=== PATIENT | female | born 1990 | race Hispanic/Latino ===

== ENCOUNTER 2019-10-04 08:34 | Emergency (ER) | payer OTHER ==
[2019-10-04] MEDS ORDERED: NA CHLORIDE 0.9% 1,000 ML ONE (09:10)
[2019-10-04 09:25] LABS: Absolute Lymphocytes (CBC) 2.2 K/uL (0.7-4.9); Basophils % 0.4 % (0-1.3); Hematocrit 36.6 % (36.0-45.0); Lymphocytes % 19.4 % (15.3-44.8); MPV 7.1 fL (7.6-11.3); RBC Red Blood Cell Count 4.07 M/uL (3.86-4.86)
[2019-10-04 09:55] LABS: BUN Blood Urea Nitrogen 6 mg/dL (7-18); Bicarbonate 21 mmol/L (21-32); Glucose Level 80 mg/dL (74-106); HCG, Quantitative 21348 mIU/mL (1-3); Potassium 3.6 mmol/L (3.5-5.1); Sodium Level 138 mmol/L (136-145)
[2019-10-04] MEDS ORDERED: CEFTRIAXONE/SWI 1gm 1 GM/10 ML SYR ONE (10:16)
--- NOTE | 2019-10-04 10:31 | ER ---
Nurse's Notes [facility] Name: Xiomara Huertas Age: 29 yrs Sex: Female : 1990 Arrival Date: 10/04/2019 Time: 08:36 Bed 14 Private MD: Diagnosis: Threatened -14 weeks, low placenta;Urinary tract infection, site not specified Presentation: 10/03 08:41 Chief complaint: Patient states: 14 weeks and vaginal bleeding began this aa5 morning, pt states "It was pink colored but I could feel it come out this morning". Pt states "I only got a little bit of (abdominal) cramping this morning but not anymore". Denies nausea/vomiting. 08:41 Coronavirus screen: Patient denies a cough. Patient denies shortness of breath or aa5 difficulty breathing. Patient denies measured and/or subjective temperature greater than 100.4F prior to today's visit. Patient denies travel on a cruise ship or to a country the [facility] currently lists as an affected area. Patient denies contact with known and/or suspected case of COVID-19. Proceed with normal triage. Ebola Screen: Patient negative for fever greater than or equal to 101.5 degrees Fahrenheit, and additional compatible Ebola Virus Disease symptoms. Initial Sepsis Screen: Does the patient meet any 2 criteria? No. Patient's initial sepsis screen is negative. Does the patient have a suspected source of infection? No. Patient's initial sepsis screen is negative. Risk Assessment: Do you want to hurt yourself or someone else? Patient reports no desire to harm self or others. Onset of symptoms was October 04, 2019. 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 - Social history:: Smoking status: Patient denies any tobacco usage or history of. - Family history:: not pertinent. Screenin:22 Abuse screen: Denies threats or abuse. Denies injuries from another. Nutritional hb screening: No deficits noted. Tuberculosis screening: No symptoms or risk factors identified. Fall Risk None identified. Assessment: 09:05 General: Appears in no apparent distress. Behavior is calm, cooperative. Pain: Denies hb pain. Neuro: Level of Consciousness is awake, alert, obeys commands, Oriented to person, place, time, situation. Cardiovascular: Capillary refill < 3 seconds Patient's skin is warm and dry. Respiratory: Respiratory effort is even, unlabored, Respiratory pattern is regular, symmetrical. GI: No signs and/or symptoms were reported involving the gastrointestinal system. : Reports pink tinged vaginal discharge upon waking today. EENT: No signs and/or symptoms were reported regarding the EENT system. Derm: Skin is pink, warm \\T\\ dry. Musculoskeletal: No signs and/or symptoms reported regarding the musculoskeletal system. Vital Signs: 08:41 BP 131 / 60; Pulse 83; Resp 16 S; Temp 98.8(O); Pulse Ox 100% on R/A; Weight 81.19 kg aa5 (R); Height 4 ft. 11 in. (149.86 cm) (R); Pain 0/10; 08:41 Body Mass Index 36.15 (81.19 kg, 149.86 cm) aa5 ED Course: 08:36 Patient arrived in ED. as 08:37 Arya Shepard MD is Attending Physician. leona 08:41 Arm band placed on Patient placed in an exam room, on a stretcher. aa5 08:50 Triage completed. aa5 08:58 Vianey Munoz, RN is Primary Nurse. hb 09:05 Patient has correct armband on for positive identification. Placed in gown. Bed in low hb position. Call light in reach. Side rails up X 1. 09:10 Inserted saline lock: 22 gauge in left antecubital area, using aseptic technique. Blood hb collected. 10:03 Urine Culture Sent. ca1 10:30 Scout Nieto MD is Referral Physician. leona 10:42 Ultrasound completed. Patient tolerated well. Notified ED Physician avery. sg3 10:42 US Transvaginal Ob In Process Unspecified. EDMS Administered Medications: 09:10 Drug: NS 0.9% 1000 ml Route: IV; Rate: 1 bolus; Site: left antecubital; hb 10:10 Drug: Rocephin 1 grams Route: IV; Rate: per protocol; Site: left antecubital; ca1 Outcome: 10:30 Discharge ordered by MD. delgadillo 10:49 Patient left the ED. aa5 Signatures: Dispatcher [employer] EDMS Arya Shepard MD MD cha Martinez, Amelia as Calderon, Audri RN RN aa5 Vianey Munoz RN RN Milady Gonzalez 3 Francisca Penn RN RN ca1
--- NOTE | 2019-10-04 10:32 | EDPHYS ---
Physician Documentation [facility] Name: Xiomara Huertas Age: 29 yrs Sex: Female : 1990 Arrival Date: 10/04/2019 Time: 08:36 Bed 14 Private MD: ED Physician Arya Shepard HPI: 10/03 09:25 This 29 yrs old Female presents to ER via Ambulatory with complaints of leona Vaginal Bleeding - 14 wks preg. 09:25 The patient presents with vaginal bleeding that is light. Onset: The symptoms/episode leona began/occurred just prior to arrival, this morning. Modifying factors: The symptoms are alleviated by nothing, the symptoms are aggravated by nothing. Associated signs and symptoms: The patient has no apparent associated signs or symptoms. Severity of symptoms: At their worst the symptoms were mild, in the emergency department the symptoms are unchanged. The patient is sexually active, reportedly has a single partner. The patient has not experienced similar symptoms in the past. 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 - Social history:: Smoking status: Patient denies any tobacco usage or history of. - Family history:: not pertinent. ROS: 09:25 Constitutional: Negative for fever, chills, and weight loss, Eyes: Negative for injury, leona pain, redness, and discharge, ENT: Negative for injury, pain, and discharge, Neck: Negative for injury, pain, and swelling, Cardiovascular: Negative for chest pain, palpitations, and edema, Respiratory: Negative for shortness of breath, cough, wheezing, and pleuritic chest pain, Abdomen/GI: Negative for abdominal pain, nausea, vomiting, diarrhea, and constipation, Back: Negative for injury and pain, MS/Extremity: Negative for injury and deformity, Skin: Negative for injury, rash, and discoloration, Neuro: Negative for headache, weakness, numbness, tingling, and seizure, Psych: Negative for depression, anxiety, suicide ideation, homicidal ideation, and hallucinations, Allergy/Immunology: Negative for hives, rash, and allergies, Endocrine: Negative for neck swelling, polydipsia, polyuria, polyphagia, and marked weight changes, Hematologic/Lymphatic: Negative for swollen nodes, abnormal bleeding, and unusual bruising. 09:25 : Positive for vaginal bleeding. Exam: 09:25 Constitutional: This is a well developed, well nourished patient who is awake, alert, leona and in no acute distress. Head/Face: Normocephalic, atraumatic. Eyes: Pupils equal round and reactive to light, extra-ocular motions intact. Lids and lashes normal. Conjunctiva and sclera are non-icteric and not injected. Cornea within normal limits. Periorbital areas with no swelling, redness, or edema. ENT: Nares patent. No nasal discharge, no septal abnormalities noted. Tympanic membranes are normal and external auditory canals are clear. Oropharynx with no redness, swelling, or masses, exudates, or evidence of obstruction, uvula midline. Mucous membranes moist. Neck: Trachea midline, no thyromegaly or masses palpated, and no cervical lymphadenopathy. Supple, full range of motion without nuchal rigidity, or vertebral point tenderness. No Meningismus. Chest/axilla: Normal chest wall appearance and motion. Nontender with no deformity. No lesions are appreciated. Cardiovascular: Regular rate and rhythm with a normal S1 and S2. No gallops, murmurs, or rubs. Normal PMI, no JVD. No pulse deficits. Abdomen/GI: Soft, non-tender, with normal bowel sounds. No distension or tympany. No guarding or rebound. No evidence of tenderness throughout. Back: No spinal tenderness. No costovertebral tenderness. Full range of motion. Skin: Warm, dry with normal turgor. Normal color with no rashes, no lesions, and no evidence of cellulitis. MS/ Extremity: Pulses equal, no cyanosis. Neurovascular intact. Full, normal range of motion. Neuro: Awake and alert, GCS 15, oriented to person, place, time, and situation. Cranial nerves II-XII grossly intact. Motor strength 5/5 in all extremities. Sensory grossly intact. Cerebellar exam normal. Normal gait. Psych: Awake, alert, with orientation to person, place and time. Behavior, mood, and affect are within normal limits. 09:25 Respiratory: the patient does not display signs of respiratory distress, Respirations: normal, Breath sounds: are clear throughout. Vital Signs: 08: BP 131 / 60; Pulse 83; Resp 16 S; Temp 98.8(O); Pulse Ox 100% on R/A; Weight 81.19 kg aa5 (R); Height 4 ft. 11 in. (149.86 cm) (R); Pain 0/10; 08:41 Body Mass Index 36.15 (81.19 kg, 149.86 cm) aa5 MDM: 08:41 Patient medically screened. leona 09:28 Differential diagnosis: threatened Ab. Data reviewed: vital signs, nurses notes, lab [facility] test result(s), radiologic studies, ultrasound. Data interpreted: pvc monitor: rate is 83 beats/min, rhythm is regular, Pulse oximetry: on room air is 100 %. Test interpretation: by ED physician or midlevel provider:. Counseling: I had a detailed discussion with the patient and/or guardian regarding: the historical points, exam findings, and any diagnostic results supporting the discharge/admit diagnosis, lab results, radiology results, the need for outpatient follow up, for definitive care, an OB/Gyne specialist. 10:29 ED course: pelvic rest, follow up ob, return if worsens. 10/03 08:41 Order name: Quantitative Hcg; Complete Time: 10:25 10/03 08:41 Order name: Abo/rh Typing; Complete Time: 09:55 10/03 08:41 Order name: Basic Metabolic Panel; Complete Time: 10:25 10/03 08:41 Order name: CBC with Diff; Complete Time: 09:55 10/03 09:53 Order name: Urine Dipstick--Ancillary (enter results) eb 10/03 09:53 Order name: Urine --Ancillary (enter results) eb 10/03 08:41 Order name: Urine Test (obtain specimen); Complete Time: 10:03 10/03 08:41 Order name: IV Saline Lock; Complete Time: 09:21 10/03 08:41 Order name: Labs collected and sent; Complete Time: 09:21 10/03 08:41 Order name: NPO; Complete Time: 09:21 10/03 08:41 Order name: US Transvaginal Ob [facility] 10/03 09:56 Order name: Urine Culture [facility] 10/03 08:41 Order name: Urine Dipstick-Ancillary (obtain specimen); Complete Time: 10:03 [facility] Administered Medications: 09:10 Drug: NS 0.9% 1000 ml Route: IV; Rate: 1 bolus; Site: left antecubital; hb 10:10 Drug: Rocephin 1 grams Route: IV; Rate: per protocol; Site: left antecubital; ca1 Disposition: 10/04/19 10:30 Discharged to Home. Impression: Threatened - 14 weeks, low placenta, Urinary tract infection, site not specified. - Condition is Stable. - Discharge Instructions: Threatened Miscarriage, Urinary Tract Infection, Adult, Vaginal Bleeding During , First Trimester, Vaginal Bleeding During , Second Trimester, Urinary Tract Infection, Adult, [id number], Threatened Miscarriage, [id number], Pelvic Rest. - Prescriptions for Vitamin 27- 0.8 mg Oral Tablet - take 1 tablet by ORAL route once daily; 30 tablet. Macrobid 100 mg Oral Capsule - take 1 capsule by ORAL route every 12 hours for 7 days; 14 capsule. - Medication Reconciliation Form, Thank You Letter, Antibiotic Education, Prescription Opioid Use form. - Follow up: Private Physician; When: 2 - 3 days; Reason: Recheck today's complaints, Continuance of care, Re-evaluation by your physician. Follow up: Scout Nieto; When: 2 - 3 days; Reason: Recheck today's complaints, Re-evaluation by your physician. - Problem is new. - Symptoms have improved. Signatures: Dispatcher [employer] EDNE Arya Shepard MD MD cha Calderon, Audri, RN RN aa5 Vianey Munoz RN RN Francisca Penn RN RN ca1 Corrections: (The following items were deleted from the chart) 10:49 10:30 10/04/2019 10:30 Discharged to Home. Impression: Threatened - 14 weeks, aa5 low placenta; Urinary tract infection, site not specified. Condition is Stable. Discharge Instructions: Threatened Miscarriage, Vaginal Bleeding During , First Trimester, Vaginal Bleeding During , Second Trimester, Threatened Miscarriage, [id number], Pelvic Rest, Urinary Tract Infection, Adult, Urinary Tract Infection, Adult, [id number]. Prescriptions for Vitamin 27-0.8 mg Oral Tablet - take 1 tablet by ORAL route once daily; 30 tablet, Macrobid 100 mg Oral Capsule - take 1 capsule by ORAL route every 12 hours for 7 days; 14 capsule. and Forms are Medication Reconciliation Form, Thank You Letter, Antibiotic Education, Prescription Opioid Use. Follow up: Private Physician; When: 2 - 3 days; Reason: Recheck today's complaints, Continuance of care, Re-evaluation by your physician. Follow up: Scout Nieto; When: 2 - 3 days; Reason: Recheck today's complaints, Re-evaluation by your physician. Problem is new. Symptoms have improved. leona
--- NOTE | 2019-10-04 10:53 | RAD REPORT ---
EXAM DESCRIPTION: US - Transvaginal OB - 10/04/2019 10:40 am CLINICAL HISTORY: with pelvic pain and vaginal bleeding. COMPARISON: None. FINDINGS: Single intrauterine in breech presentation. The placenta is anterior. Placental lakes are present. The tip of the placenta lies 1.4 centimeters c ervix Amniotic fluid is normal. Cardiac activity 144 beats per minute Cervix 3.8 centimeters BPD 2.7 centimeters 14 weeks 5 days HC 10 centimeters 14 weeks 4 days HC 8 centimeters 14 weeks 2 days FL 1.4 centimeters 14 weeks 1 day Right and left ovary appear normal. . An adnexal mass is not noted. No significant free fluid is seen. IMPRESSION: Single live intrauterine with an estimated gestational age 14 weeks 2 days ED D 04/01/2020 Low lying placenta Breech presentation If a survey is desired it should be performed in approximately 4 weeks
[2019-10-04 11:03] VITALS: BP 131/60; TEMP 98.8; O2SAT 100
[2019-10-04 11:25] LABS: Urine Blood 1+ (NEG); Urine Glucose NEGATIVE (NEG); Urine Protein NEGATIVE (NEG); Urine Specific Gravity 1.015 (1.005-1.030); Urine pH 6.5 (5.0-7.0)
== END 2019-10-04 10:49 | disposition home or self-care (01) ==
LOC: ER 08:34
DX: O20.0 Threatened abortion (principal); O23.41 Unspecified infection of urinary tract in pregnancy, first trimester; O44.41 Low lying placenta NOS or without hemorrhage, first trimester; Z3A.14 14 weeks gestation of pregnancy
CPT/HCPCS: 87088; 85025; 87086; 80048; 36415; 86900; 81025; 86901; 84702; 81003; 76817; J0696; J7030; 96374; 99284

== ENCOUNTER 2020-10-27 01:20 | Emergency (ER) | payer OTHER ==
--- OUTSIDE RECORDS SUMMARY | 2020-10-27 01:32 | XMS REPORT | Continuity of Care Document ---
:1990 Author Organization [facility] t Address [address] [place] [address] Care Team Providers Name Role Phone Unavailable Unavailable Unavailable Payers Payer Name Policy Type Policy Number Effective Date Expiration Date S ource Problems This patient has no known problems. Allergies, Adverse Reactions, Alerts Allergy Allergy Status Severity Reaction(s) Onset Inactive Treating Comm ents Source Name Type Date Date Clinician No Known DA Active U [facility] All[facility]ie 04-09 [facility] 00:[facility] e [facility] Medications This patient has no known medications. Procedures This patient has no known procedures. Results Test Description Test Time Test Comments Results Result Comments Source COMPREHENSIVE METABOLIC PANEL 2020-04-11 10:20:00 Test Item Value Reference Range Interpretation Comme nts SODIUM (test code = NA) 140 mmol/L 136-145 N POTASSIUM (test code = K) 3.9 mmol/L 3.5-5.1 N CHLORIDE (test code = CL) 109.0 mmol/L 98-107 H CARBON DIOXIDE (test code = 25.0 mmol/L 21-32 N CO2) ANION GAP (test code = GAP) 9.9 10-20 L GLUCOSE (test code = GLU) 55 mg/dL 74-106 L BLOOD UREA NITROGEN (test code 8 mg/dL 7-18 N = BUN) GLOMERULAR FILTRATION RATE > 60 mL/min >=60 E stimated GFR by using (test code = GFR) Modified M DRD formula.Chronic kidney disease is defined as either kidney d amageor GFR <60 mL/min/1.73 m2 for >3 months. CREATININE (test code = CREAT) 0.50 mg/dL 0.55-1.02 L Note change in reference range due to ch ivan in reagent. BUN/CREATININE RATIO (test code 16.2 10-20 N = BUN/CREA) TOTAL PROTEIN (test code = 5.0 gram/dL 6.4-8.2 L PROT) ALBUMIN (test code = ALB) 1.7 g/dL 3.4-5.0 L GLOBULIN (test code = GLOB) 3.3 gram/dL 2.7-4.2 N ALBUMIN/GLOBULIN RATIO (test 0.5 0.75-1.50 L code = A/G) CALCIUM (test code = CA) 7.8 mg/dL 8.5-10.1 L BILIRUBIN TOTAL (test code = 0.40 mg/dL 0.0-1.0 N BILT) SGOT/AST (test code = AST) 18 IUnit/L 15-37 N SGPT/ALT (test code = ALT) 18 IUnit/L 12-78 N ALKALINE PHOSPHATASE TOTAL 162 IUnit/L 45-117 H * *Note change in reference (test code = ALKP) range due to change in reagent. OLU THOMAS INSTED OF [email or web address] 04/11/20 [id number] METABOLIC [id number] 10:11:00 Test Item Value Reference Range Interpretation Comments SODIUM (test code = NA) 140 mmol/L 136-145 N POTASSIUM (test code = K) 3.9 mmol/L 3.5-5.1 N CHLORIDE (test code = CL) 109.0 mmol/L 98-107 H CARBON DIOXIDE (test code = CO2) mmol/L 21-32 ANION GAP (test code = GAP) 10-20 GLUCOSE (test code = GLU) mg/dL 74-106 BLOOD UREA NITROGEN (test code = mg/dL 7-18 BUN) GLOMERULAR FILTRATION RATE (test mL/min >=60 code = GFR) CREATININE (test code = CREAT) mg/dL 0.55-1.02 BUN/CREATININE RATIO (test code 10-20 = BUN/CREA) TOTAL PROTEIN (test code = PROT) gram/dL 6.4-8.2 ALBUMIN (test code = ALB) g/dL 3.4-5.0 GLOBULIN (test code = GLOB) gram/dL 2.7-4.2 ALBUMIN/GLOBULIN RATIO (test 0.75-1.50 code = A/G) CALCIUM (test code = CA) mg/dL 8.5-10.1 BILIRUBIN TOTAL (test code = mg/dL 0.0-1.0 BILT) SGOT/AST (test code = AST) IUnit/L 15-37 SGPT/ALT (test code = ALT) IUnit/L 12-78 ALKALINE PHOSPHATASE TOTAL (test IUnit/L 45-117 code = ALKP) OLU LAV TOP INSTED OF [email or web address] 04/11/20 [id number] W/AUTO DIFF 2020-04-11 06:46:00 Test Item Value Reference Range Interpretation Comments WHITE BLOOD CELL (test 12.1 K/mm3 4.5-12.5 N code = WBC) RED BLOOD CELL (test 3.09 mill/mm3 3.7-5.2 L code = RBC) HEMOGLOBIN (test code 9.4 gram/dL 11.5-15.5 L RESULT VERIFIED BY = HGB) REPEAT ANALYSIS HEMATOCRIT (test code 28.5 % 36.0-46.0 L = HCT) MEAN CELL VOLUME (test 92.2 fL 80-98 N code = MCV) MEAN CELL HGB (test 30.4 picogram 27.0-33.0 N code = MCH) MEAN CELL HGB 33.0 gram/dL 33.0-36.0 N CONCETRATION (test code = MCHC) RED CELL DISTRIBUTION 14.8 % 11.6-16.2 N WIDTH (test code = RDW) RED CELL DISTRIBUTION 49.5 fL 37.0-51.0 N WIDTH SD (test code = RDW-SD) PLATELET COUNT (test 300 K/mm3 150-450 code = PLT) MEAN PLATELET VOLUME 9.6 fL 6.7-11.0 N (test code = MPV) NEUTROPHIL % (test 78.2 % 39.0-69.0 H code = NT%) IMMATURE GRANULOCYTE % 0.7 % 0.0-5.0 N (test code = IG%) LYMPHOCYTE % (test 14.4 % 25.0-55.0 L code = LY%) MONOCYTE % (test code 6.0 % 0.0-10.0 N = MO%) EOSINOPHIL % (test 0.4 % 0.0-5.0 N code = EO%) BASOPHIL % (test code 0.3 % 0.0-1.0 N = BA%) NUCLEATED RBC % (test 0.0 % 0-0 N code = NRBC%) NEUTROPHIL # (test 9.42 K/mm3 1.8-7.7 H code = NT#) IMMATURE GRANULOCYTE # 0.08 x10 3/uL 0-0.03 H (test code = IG#) LYMPHOCYTE # (test 1.74 K/mm3 1.0-5.0 N code = LY#) MONOCYTE # (test code 0.72 K/mm3 0-0.8 N = MO#) EOSINOPHIL # (test 0.05 K/mm3 0.0-0.5 N code = EO#) BASOPHIL # (test code 0.04 K/mm3 0.0-0.2 N = BA#) NUCLEATED RBC # (test 0.00 K/mm3 0.0-0.1 N code = NRBC#) COMMENTS TO ROOM MANAGER: 1ST [id number] 05:33:00 Test Item Value Reference Range Interpretation Comments GLUBED (test code = 88 mg/dL 74-106 N Performe d by certified GLUBED) 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 at [facility] [id number] 04:17:00 Test Item Value Reference Range Interpretation Comments GLUBED (test code = 74 mg/dL 74-106 N Performe d by certified GLUBED) 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 at [facility] [id number] 00:29:00 Test Item Value Reference Range Interpretation Comments GLUBED (test code = 116 mg/dL 74-106 H Performe d by certified GLUBED) 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 at [facility] AG HEPAT B [id number] 21:34:00 Test Item Value Reference Range Interpretation Comments AG HEPAT B SURF (test code Nonreactive Index Nonreactive = HBSAG) AB [id number] 21:34:00 Test Item Value Reference Range Interpretation Comments AB TREPONEMA (test code = Nonreactive Index NonReactive TREPAB) HIV 1 2 COMBO AG/AB [id number] 21:25:00 Test Item Value Reference Range Interpretation Comments HIV 1 2 COMBO AB/AG NON NONREACTIVE NONREACTIV E HIV AG/AB SCREEN REACTIVE P24 ANTIGEN (test code = NONREACTIVE [id number]) NONREACTIVE HIV 1&2 ANTIBODY NONREACTIVE THE HIV-1 P24 TEST HELPS DISTINGUISH ACU TE HIV-1INFECTIONF ROM ESTABLISHED HIV -1 INFECTION WHEN THE SPECIMEN ISPOSI TIVE FOR HIV-1 P24 A NTIGEN. HIV-1 P24 ANTIG EN IS HIGHEST IN THE FIRST FEW WEEKS AFTERINFECTION COMPREHENSIVE METABOLIC [id number] 21:16:00 Test Item Value Reference Range Interpretation Comments SODIUM (test code = 138 mmol/L 136-145 N NA) POTASSIUM (test code = 3.8 mmol/L 3.5-5.1 N K) CHLORIDE (test code = 106.0 mmol/L 98-107 N CL) CARBON DIOXIDE (test 23.0 mmol/L 21-32 N code = CO2) ANION GAP (test code = 12.8 10-20 N GAP) GLUCOSE (test code = 86 mg/dL 74-106 N GLU) BLOOD UREA NITROGEN 10 mg/dL 7-18 N (test code = BUN) GLOMERULAR FILTRATION > 60 mL/min >=60 Estima shane GFR by RATE (test code = GFR) using Modified MDRD formula.Chronic kidney disease is defined as eith er kidney damageor GFR <60 mL/min/1.73 m2 for >3 months. CREATININE (test code 0.60 mg/dL 0.55-1.02 N Note change in = CREAT) reference range due to change in reagent. BUN/CREATININE RATIO 16.7 10-20 N (test code = BUN/CREA) TOTAL PROTEIN (test 7.5 gram/dL 6.4-8.2 N code = PROT) ALBUMIN (test code = 2.8 g/dL 3.4-5.0 L ALB) GLOBULIN (test code = 4.7 gram/dL 2.7-4.2 H GLOB) ALBUMIN/GLOBULIN RATIO 0.6 0.75-1.50 L (test code = A/G) CALCIUM (test code = 8.8 mg/dL 8.5-10.1 N CA) BILIRUBIN TOTAL (test 0.50 mg/dL 0.0-1.0 N code = BILT) SGOT/AST (test code = 19 IUnit/L 15-37 N AST) SGPT/ALT (test code = 28 IUnit/L 12-78 N ALT) ALKALINE PHOSPHATASE 273 IUnit/L 45-117 H Note change in TOTAL (test code = reference range due ALKP) to change in reagent. [id number] 21:15:00 Test Item Value Reference Range Interpretation Comments GLYCOSYLATED HEMOGLOBIN 5.5 % HbA1 [place] [facility] DIAGNOSIS: (HA1C) (test code = HbA1C GLYHGB) (%) ----- ----- Diab etic >6.4Prediabetes 5.7 - 6.4Normal <5.7 ESTIMATED AVERAGE 111 MG/DL GLUCOSE (test code = EAG) URINALYSIS [id number] 21:14:00 Test Item Value Reference Range Interpretation Comments UA COLOR (test code = YELLOW YELLOW COLU) UA APPEARANCE (test code CLEAR CLEAR = APPU) UA GLUCOSE DIPSTICK (test NEGATIVE mg/dL NEGATIVE code = DGLUU) UA BILIRUBIN DIPSTICK NEGATIVE mg/dL NEGATIVE (test code = BILU) UA KETONE DIPSTICK (test 80 (3+) mg/dL NEGATIVE A code = KETU) UA SPECIFIC GRAVITY (test 1.017 1.001-1.035 code = SGU) UA BLOOD DIPSTICK (test 1.0 mg/dL (3+) mg/dL NEGATIVE A code = YOLANDA) UA PH DIPSTICK (test code 6.0 5.0-8.0 = SONI) UA PROTEIN DIPSTICK (test 20 (Trace) mg/dL NEGATIVE A code = PROU) UA UROBILINIOGEN DIPSTICK Normal mg/dL NEGATIVE (test code = URO) UA NITRITE DIPSTICK (test NEGATIVE NEGATIVE code = DAVID) UA LEUKOCYTE ESTERASE W 75 Orin/uL (1+) NEGATIVE A REFLEX (test code = Orin/uL LEUUR) UA WBC (test code = WBCU) 0-5 per HPF 0-5 UA RBC (test code = RBCU) 0-2 #/HPF 0-5 UA EPITHELIAL CELLS (test FEW per HPF FEW code = EPIU) UA BACTERIA (test code = TRACE #/HPF NONE BACU) UA MUCUS (test code = FEW #/LPF FEW MUCU) URINALYSIS [id number] 21:12:00 Test Item Value Reference Range Interpretation Comments UA COLOR (test code = YELLOW YELLOW COLU) UA APPEARANCE (test code CLEAR CLEAR = APPU) UA GLUCOSE DIPSTICK (test NEGATIVE mg/dL NEGATIVE code = DGLUU) UA BILIRUBIN DIPSTICK NEGATIVE mg/dL NEGATIVE (test code = BILU) UA KETONE DIPSTICK (test 80 (3+) mg/dL NEGATIVE A code = KETU) UA SPECIFIC GRAVITY (test 1.017 1.001-1.035 code = SGU) UA BLOOD DIPSTICK (test 1.0 mg/dL (3+) mg/dL NEGATIVE A code = YOLANDA) UA PH DIPSTICK (test code 6.0 5.0-8.0 = SONI) UA PROTEIN DIPSTICK (test 20 (Trace) mg/dL NEGATIVE A code = PROU) UA UROBILINIOGEN DIPSTICK Normal mg/dL NEGATIVE (test code = URO) UA NITRITE DIPSTICK (test NEGATIVE NEGATIVE code = DAVID) UA LEUKOCYTE ESTERASE W 75 Orin/uL (1+) NEGATIVE A REFLEX (test code = Orin/uL LEUUR) UA WBC (test code = WBCU) per HPF 0-5 UA RBC (test code = RBCU) per HPF 0-5 UA EPITHELIAL CELLS (test per HPF Few code = EPIU) UA BACTERIA (test code = per HPF NONE BACU) URINALYSIS [id number] 21:12:00 Test Item Value Reference Range Interpretation Comments UA COLOR (test code = YELLOW YELLOW COLU) UA APPEARANCE (test code CLEAR CLEAR = APPU) UA GLUCOSE DIPSTICK (test NEGATIVE mg/dL NEGATIVE code = DGLUU) UA BILIRUBIN DIPSTICK NEGATIVE mg/dL NEGATIVE (test code = BILU) UA KETONE DIPSTICK (test 80 (3+) mg/dL NEGATIVE A code = KETU) UA SPECIFIC GRAVITY (test 1.017 1.001-1.035 code = SGU) UA BLOOD DIPSTICK (test 1.0 mg/dL (3+) mg/dL NEGATIVE A code = YOLANDA) UA PH DIPSTICK (test code 6.0 5.0-8.0 = SONI) UA PROTEIN DIPSTICK (test 20 (Trace) mg/dL NEGATIVE A code = PROU) UA UROBILINIOGEN DIPSTICK Normal mg/dL NEGATIVE (test code = URO) UA NITRITE DIPSTICK (test NEGATIVE NEGATIVE code = DAVID) UA LEUKOCYTE ESTERASE W 75 Orin/uL (1+) NEGATIVE A REFLEX (test code = Orin/uL LEUUR) UA WBC (test code = WBCU) per HPF 0-5 UA RBC (test code = RBCU) per HPF 0-5 UA EPITHELIAL CELLS (test per HPF Few code = EPIU) UA BACTERIA (test code = per HPF NONE BACU) COMPREHENSIVE METABOLIC [id number] 21:01:00 Test Item Value Reference Range Interpretation Comments SODIUM (test code = NA) 138 mmol/L 136-145 N POTASSIUM (test code = K) 3.8 mmol/L 3.5-5.1 N CHLORIDE (test code = CL) 106.0 mmol/L 98-107 N CARBON DIOXIDE (test code = CO2) mmol/L 21-32 ANION GAP (test code = GAP) 10-20 GLUCOSE (test code = GLU) mg/dL 74-106 BLOOD UREA NITROGEN (test code = mg/dL 7-18 BUN) GLOMERULAR FILTRATION RATE (test mL/min >=60 code = GFR) CREATININE (test code = CREAT) mg/dL 0.55-1.02 BUN/CREATININE RATIO (test code 10-20 = BUN/CREA) TOTAL PROTEIN (test code = PROT) gram/dL 6.4-8.2 ALBUMIN (test code = ALB) g/dL 3.4-5.0 GLOBULIN (test code = GLOB) gram/dL 2.7-4.2 ALBUMIN/GLOBULIN RATIO (test 0.75-1.50 code = A/G) CALCIUM (test code = CA) mg/dL 8.5-10.1 BILIRUBIN TOTAL (test code = mg/dL 0.0-1.0 BILT) SGOT/AST (test code = AST) IUnit/L 15-37 SGPT/ALT (test code = ALT) IUnit/L 12-78 ALKALINE PHOSPHATASE TOTAL (test IUnit/L 45-117 code = ALKP) COVID 19 Asymptomatic IH [id number] 20:55:00 Test Item Value Reference Range Interpretation Comments COVID 19 Asymptomatic IH AG (test NEGATIVE code = COVNONPUIAG) CBC W/AUTO [id number] 20:48:00 Test Item Value Reference Range Interpretation Comments WHITE BLOOD CELL (test code = 15.9 K/mm3 4.5-12.5 H WBC) RED BLOOD CELL (test code = 4.25 mill/mm3 3.7-5.2 N RBC) HEMOGLOBIN (test code = HGB) 12.5 gram/dL 11.5-15.5 N HEMATOCRIT (test code = HCT) 38.7 % 36.0-46.0 N MEAN CELL VOLUME (test code = 91.1 fL 80-98 N MCV) MEAN CELL HGB (test code = MCH) 29.4 picogram 27.0-33.0 N MEAN CELL HGB CONCETRATION 32.3 gram/dL 33.0-36.0 L (test code = MCHC) RED CELL DISTRIBUTION WIDTH 14.4 % 11.6-16.2 N (test code = RDW) RED CELL DISTRIBUTION WIDTH SD 47.8 fL 37.0-51.0 N (test code = RDW-SD) PLATELET COUNT (test code = 442 K/mm3 150-450 N PLT) MEAN PLATELET VOLUME (test code 9.4 fL 6.7-11.0 N = MPV) NEUTROPHIL % (test code = NT%) 79.0 % 39.0-69.0 H IMMATURE GRANULOCYTE % (test 0.6 % 0.0-5.0 N code = IG%) LYMPHOCYTE % (test code = LY%) 12.4 % 25.0-55.0 L MONOCYTE % (test code = MO%) 7.6 % 0.0-10.0 N EOSINOPHIL % (test code = EO%) 0.1 % 0.0-5.0 N BASOPHIL % (test code = BA%) 0.3 % 0.0-1.0 N NUCLEATED RBC % (test code = 0.0 % 0-0 N NRBC%) NEUTROPHIL # (test code = NT#) 12.51 K/mm3 1.8-7.7 H IMMATURE GRANULOCYTE # (test 0.10 x10 3/uL 0-0.03 H code = IG#) LYMPHOCYTE # (test code = LY#) 1.96 K/mm3 1.0-5.0 N MONOCYTE # (test code = MO#) 1.21 K/mm3 0-0.8 H EOSINOPHIL # (test code = EO#) 0.02 K/mm3 0.0-0.5 N BASOPHIL # (test code = BA#) 0.05 K/mm3 0.0-0.2 N NUCLEATED RBC # (test code = 0.00 K/mm3 0.0-0.1 N NRBC#)
--- NOTE | 2020-10-27 02:52 | EDPHYS ---
Physician Documentation [facility] Name: Xiomara Huertas Age: 30 yrs Sex: Female : 1990 Arrival Date: 10/27/2020 Time: 01:24 Bed Waiting Private MD: ED Physician Steve Dumont HPI: 10/27 02:47 This 30 yrs old Female presents to ER via Unassigned with complaints of sp3 Gallbladder Pain. 02:47 30-year-old female history of and appendectomy presents with 24 hours of sp3 right upper quadrant pain without emesis, diarrhea, left-sided pain, chest pain, fever or any other symptoms. On ROS, patient denies headache, neck pain, chest pain back pain, syncope, neuro symptoms, any other ROS at this time. Patient was concern for gallstones and came in for ultrasound. Patient has no other symptoms.. 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 - Social history:: Smoking status: Patient denies any tobacco usage or history of. ROS: 02:48 Constitutional: Negative for fever, chills, and weight loss, Eyes: Negative for injury, sp3 pain, redness, and discharge, ENT: Negative for injury, pain, and discharge, Neck: Negative for injury, pain, and swelling, Cardiovascular: Negative for chest pain, palpitations, and edema, Respiratory: Negative for shortness of breath, cough, wheezing, and pleuritic chest pain, Back: Negative for injury and pain, : Negative for injury, bleeding, discharge, and swelling, MS/Extremity: Negative for injury and deformity, Skin: Negative for injury, rash, and discoloration, Neuro: Negative for headache, weakness, numbness, tingling, and seizure, Psych: Negative for depression, anxiety, suicide ideation, homicidal ideation, and hallucinations, Allergy/Immunology: Negative for hives, rash, and allergies, Endocrine: Negative for neck swelling, polydipsia, polyuria, polyphagia, and marked weight changes. 02:48 Abdomen/GI: Positive for abdominal pain, Negative for nausea and vomiting, diarrhea, rectal pain, rectal bleeding. Exam: 02:49 Constitutional: This is a well developed, well nourished patient who is awake, alert, sp3 and in no acute distress. Head/Face: Normocephalic, atraumatic. Eyes: Pupils equal round and reactive to light, extra-ocular motions intact. Lids and lashes normal. Conjunctiva and sclera are non-icteric and not injected. Cornea within normal limits. Periorbital areas with no swelling, redness, or edema. ENT: Nares patent. No nasal discharge, no septal abnormalities noted. External auditory canals are clear. Oropharynx with no redness, swelling, or masses, exudates, or evidence of obstruction, uvula midline. Mucous membranes moist. Neck: Trachea midline, no thyromegaly or masses palpated, and no cervical lymphadenopathy. Supple, full range of motion without nuchal rigidity, or vertebral point tenderness. No Meningismus. Chest/axilla: Normal chest wall appearance and motion. Nontender with no deformity. No lesions are appreciated. Cardiovascular: Regular rate and rhythm with a normal S1 and S2. No gallops, murmurs, or rubs. Normal PMI, no JVD. No pulse deficits. Respiratory: Lungs have equal breath sounds bilaterally, clear to auscultation and percussion. No rales, rhonchi or wheezes noted. No increased work of breathing, no retractions or nasal flaring. Abdomen/GI: Soft, non-tender, with normal bowel sounds. No distension or tympany. No guarding or rebound. No evidence of tenderness throughout. Back: No spinal tenderness. No costovertebral tenderness. Full range of motion. Skin: Warm, dry with normal turgor. Normal color with no rashes, no lesions, and no evidence of cellulitis. Neuro: Awake and alert, GCS 15, oriented to person, place, time, and situation. Cranial nerves II-XII grossly intact. Motor strength 5/5 in all extremities. Sensory grossly intact. Cerebellar exam normal. Normal gait. Psych: Awake, alert, with orientation to person, place and time. Behavior, mood, and affect are within normal limits. Vital Signs: 02:54 BP 121 / 73; Pulse 65; Resp 16; Temp 97.2; Pulse Ox 100% on R/A; Weight 78.02 kg; em Height 4 ft. 11 in. (149.86 cm); 02:54 Body Mass Index 34.74 (78.02 kg, 149.86 cm) em MDM: 02:49 Data reviewed: vital signs, nurses notes, radiologic studies. ED course: 22-year-old sp3 female with abdominal pain right upper quadrant that is now resolved. Ultrasound demonstrates positive gallstones without pericholecystic fluid or thickened gallbladder wall. Patient is no acute distress and is able to speak without any pain. Labs were initially ordered due to chief complaint but were canceled due to patient not needing further work-up. Patient has been stretching now and is not . Patient will follow up with general surgeon for outpatient cholecystectomy and she is aware of signs symptoms to return here in the emergency department for further complications or symptoms. Labs were still offered to patient for further work-up here but she declined.. 02:52 Patient medically screened. sp3 10/27 02:11 Order name: US Abdomen Limited sp3 Administered Medications: No medications were administered Disposition Summary: 10/27/20 02:52 Discharge Ordered Location: Home sp3 Condition: Stable sp3 Diagnosis - Other cholelithiasis without obstruction sp3 Followup: sp3 - With: Ruel Serrato MD - When: As needed - Reason: Continuance of care Discharge Instructions: - Discharge Summary Sheet sp3 - Cholelithiasis sp3 Forms: - Medication Reconciliation Form sp3 - Thank You Letter sp3 - Antibiotic Education sp3 - Prescription Opioid Use sp3 Signatures: Dispatcher [employer] Randall Watkins RN RN em Steve Dumont sp3 Corrections: (The following items were deleted from the chart) 03:02 02:10 IV Saline Lock ordered. sp3 em 03:02 02:10 Labs collected and sent ordered. sp3 em
--- NOTE | 2020-10-27 03:03 | ER ---
Nurse's Notes [facility] Name: Xiomara Huertas Age: 30 yrs Sex: Female : 1990 Arrival Date: 10/27/2020 Time: 01:24 Bed Waiting Private MD: Diagnosis: Other cholelithiasis without obstruction Presentation: 10/27 02:54 Chief complaint: Patient states: gallbladder pain att day worse at 2330, reports em nausea, denies fever. Coronavirus screen: Client denies travel out of the [place] in the last 14 days. Ebola Screen: Patient negative for fever greater than or equal to 101.5 degrees Fahrenheit, and additional compatible Ebola Virus Disease symptoms Patient denies exposure to infectious person. Patient denies travel to an Ebola-affected area in the 21 days before illness onset. No symptoms or risks identified at this time. Initial Sepsis Screen: Does the patient meet any 2 criteria? No. Patient's initial sepsis screen is negative. Does the patient have a suspected source of infection? No. Patient's initial sepsis screen is negative. Risk Assessment: Do you want to hurt yourself or someone else? Patient reports no desire to harm self or others. Onset of symptoms was October 27, 2020. 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 - Social history:: Smoking status: Patient denies any tobacco usage or history of. Screenin:58 Abuse screen: Denies threats or abuse. Nutritional screening: No deficits noted. em Tuberculosis screening: No symptoms or risk factors identified. Fall Risk None identified. Assessment: 02:57 General: Appears in no apparent distress. comfortable, Behavior is calm, cooperative, em appropriate for age, Denies fever. Pain: Complains of pain in abdomen. Neuro: Level of Consciousness is awake, alert, obeys commands, Oriented to person, place, time, situation. Cardiovascular: Capillary refill < 3 seconds Patient's skin is warm and dry. Respiratory: Airway is patent Respiratory effort is even, unlabored, Respiratory pattern is regular, symmetrical. GI: Abdomen is round non-distended, Reports nausea, Patient currently denies vomiting. Derm: Skin is intact, is healthy with good turgor, Skin is pink, warm \T\ dry. Vital Signs: 02:54 BP 121 / 73; Pulse 65; Resp 16; Temp 97.2; Pulse Ox 100% on R/A; Weight 78.02 kg; em Height 4 ft. 11 in. (149.86 cm); 02:54 Body Mass Index 34.74 (78.02 kg, 149.86 cm) em ED Course: 01:24 Patient arrived in ED. 02:31 US Abdomen Limited In Process Unspecified. EDMS 02:36 Steve Dumont is Attending Physician. sp3 02:52 Ruel Serrato MD is Referral Physician. sp3 02:52 Randall Orantes, RN is Primary Nurse. em 02:56 Triage completed. em 02:56 Arm band placed on. em 02:58 Patient has correct armband on for positive identification. em 03:02 No provider procedures requiring assistance completed. Patient did not have IV access em during this emergency room visit. Administered Medications: No medications were administered Outcome: 02:52 Discharge ordered by . sp3 03:02 Discharged to home ambulatory. em 03:02 Condition: stable 03:02 Discharge instructions given to patient, Instructed on discharge instructions, follow up and referral plans. Demonstrated understanding of instructions, follow-up care. 03:02 Patient left the ED. em Signatures: Dispatcher [employer] ED[facility] Randall Orantes, RN RN Lauryn Manriquez Steve Dumont sp3
[2020-10-27 03:09] VITALS: BP 121/73; TEMP 97.2; O2SAT 100
--- NOTE | 2020-10-27 07:52 | RAD REPORT ---
EXAM DESCRIPTION: US - Abdomen Exam Limited - 10/27/2020 2:31 am CLINICAL HISTORY: Abdominal pain. COMPARISON: None. FINDINGS: Multiple gallstones. Gallbladder wall is not thickened. The biliary tree is normal caliber. IMPRESSION: Cholelithiasis
== END 2020-10-27 03:02 | disposition home or self-care (01) ==
LOC: ER 01:20
DX: K80.80 Other cholelithiasis without obstruction (principal); E03.9 Hypothyroidism, unspecified
CPT/HCPCS: 76705; 99283

== ENCOUNTER 2021-01-26 17:59 | Emergency (ER) | payer OTHER ==
--- OUTSIDE RECORDS SUMMARY | 2021-01-26 18:02 | XMS REPORT | Continuity of Care Document ---
:1990 Author Organization [facility] t Address [address] [place] [address] Care Team Providers Name Role Phone Rosaline Ni Primary Care Physician Ginette Murguia CNM Attending Clinician Unavailable Person MD Attending Clinician PERSON Attending Clinician Unavailable [facility] Attending Clinician Unavailable Service/Gensurserge C Attending Clinician Unavailable Doctor Unassigned, Name Attending Clinician Unavailable Ced, S Admitting Clinician Unavailable Ginette Murguia CNM Admitting Clinician Unavailable Payers Payer Name Policy Type Policy Number Effective Date Expiration Date S ource Problems Condition Condition Condition Status Onset Resolution Last Treating Co mments Source Name Details Category Date Date Treatment Clinician Date Acquired Acquired Disease Active Unive rs hypothyroi hypothyroi 06-14 it y of dism dism 00:00: [address] Thyroid Thyroid Disease Active Univers nodule nodule 06-14 ity of 00:00: [address] Surveillan Surveillan Disease Active Overview : Univers ce of ce of [address] ity of previously previously 00:00: g of this [place] prescribed prescribed 00 note Me dical contracept contracept might be Branch maximilian method maximilian method different from the original. 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 ICD10 Diagnosis Term [address] [employer] [address] Instructor Utility Overweight Overweight Disease Active Overview : Univers 05-16 [place]att[place] ity of 00:00: g of this note Medical might be Branch different from the original. ICD10 Diagnosis Term [address] [employer] [address] Instructor Utility ASCUS on ASCUS on Disease Active Overview: Un artemio Pap smear Pap smear 05-11 Formatt[place] i ty of 00:00: g of this note Medical might be Branch different from the original. Negative HPV. Repeat in 3 years Allergies, Adverse Reactions, Alerts Allergy Allergy Status Severity Reaction(s) Onset Inactive Treating Comm ents Source Name Type Date Date Clinician No Known DA Active U [facility] 04[facility]09 [facility] e [facility] NO KNOWN Drug Active Univers ALLERGIE Class ity of S [facility] Social History Social Habit Start Date Stop Date Quantity Comments Source Exposure to Not sure [facility] SARS-CoV-2 [facility] (event) Branch Tobacco use and 2020-11-08 2020-11-08 Never used Universit y of exposure 00:00:00 00:00:00 [facility] Alcohol intake 2020-11-08 2020-11-08 Current University of 00:00:00 00:00:00 non-drinker of [facility] alcohol Branch (finding) Sex Ass[birth year] At [birth year] Universit y of 00:00:00 00:00:00 [facility] Smoking Status Start Date Stop Date Source Never smoker [facility] Branch Medications Ordered Filled Start Stop Current Ordering Indication Dosage Frequency Signature Comments Components Source Medication Medication Date Date Medication? Clinician (SIG) Name Name levothyroxi Yes [id number] 75ug Take 1 Univers ne 8-30 tablet by ity of (SYNTHROID) 00:00: mouth [place] 75 mcg 00 every Medical tablet morning. Branch Brand necessary levothyroxi 2018-0 Yes [id number] 75ug Take 1 Univers ne 8-30 tablet by ity of (SYNTHROID) 00:00: mouth [place] 75 mcg 00 every Medical tablet morning. Branch Brand necessary levothyroxi Yes [id number] 75ug Take 1 Univers ne 8-30 tablet by ity of (SYNTHROID) 00:00: mouth [place] 75 mcg 00 every Medical tablet morning. Branch Brand necessary levothyroxi Yes [id number] 75ug Take 1 Univers ne 8-30 tablet by ity of (SYNTHROID) 00:00: mouth [place] 75 mcg 00 every Medical tablet morning. Branch Brand necessary levothyroxi Yes [id number] 75ug Take 1 Univers ne 8-30 tablet by ity of (SYNTHROID) 00:00: mouth [place] 75 mcg 00 every Medical tablet morning. Branch Brand necessary levothyroxi Yes [id number] 75ug Take 1 Univers ne 8-30 tablet by ity of (SYNTHROID) 00:00: mouth [place] 75 mcg 00 every Medical tablet morning. Branch Brand necessary liothyronin Yes [id number] 5ug Take 1 Univers e (CYTOMEL) 8-29 tablet by ity of 5 mcg 00:00: mouth [place] tablet 00 daily. [facility] Branch liothyronin Yes [id number] 5ug Take 1 Univers e (CYTOMEL) 8-29 tablet by ity of 5 mcg 00:00: mouth [place] tablet 00 daily. [facility] Branch liothyronin Yes [id number] 5ug Take 1 Univers e (CYTOMEL) 8-29 tablet by ity of 5 mcg 00:00: mouth [place] tablet 00 daily. [facility] Branch liothyronin Yes [id number] 5ug Take 1 Univers e (CYTOMEL) 8-29 tablet by ity of 5 mcg 00:00: mouth [place] tablet 00 daily. [facility] Branch liothyronin Yes [id number] 5ug Take 1 Univers e (CYTOMEL) 8-29 tablet by ity of 5 mcg 00:00: mouth [place] tablet 00 daily. [facility] Branch liothyronin Yes [id number] 5ug Take 1 Univers e (CYTOMEL) 8-29 tablet by ity of 5 mcg 00:00: mouth [place] tablet 00 daily. [facility] Immunizations Ordered Filled Immunization Date Status Comments [facility] e Immunization Name Name HPV 2013-11-02 Completed University of 00:00:00 [place] [facility] HPV 2013-11-02 Completed University of 00:00:00 [place] [facility] HPV 2013-11-02 Completed University of 00:00:00 [place] [facility] HPV 2013-11-02 Completed University of 00:00:00 [place] [facility] HPV 2013-11-02 Completed University of 00:00:00 [place] [facility] HPV 2013-11-02 Completed University of 00:00:00 [place] [facility] HPV 2013-06-04 Completed University of 00:00:00 [place] [facility] HPV 2013-06-04 Completed University of 00:00:00 [place] [facility] HPV 2013-06-04 Completed University of 00:00:00 [place] [facility] HPV 2013-06-04 Completed University of 00:00:00 [place] [facility] HPV 2013-06-04 Completed University of 00:00:00 [place] [facility] HPV 2013-06-04 Completed University of 00:00:00 [place] [facility] HPV 2013-04-21 Completed University of 00:00:00 [place] [facility] HPV 2013-04-21 Completed University of 00:00:00 [place] [facility] HPV 2013-04-21 Completed University of 00:00:00 [place] [facility] HPV 2013-04-21 Completed University of 00:00:00 [place] [facility] HPV 2013-04-21 Completed University of 00:00:00 [place] [facility] HPV 2013-04-21 Completed University of 00:00:00 [place] [facility] Td 2006-03-11 Completed University of 00:00:00 [place] [facility] Td 2006-03-11 Completed University of 00:00:00 [place] [facility] Td 2006-03-11 Completed University of 00:00:00 [place] [facility] Td 2006-03-11 Completed University of 00:00:00 [place] [facility] Td 2006-03-11 Completed University of 00:00:00 [place] [facility] Td 2006-03-11 Completed University of 00:00:00 [facility] Branch Vital Signs Vital Name Observation Time Observation Value Comments Source Systolic blood 2020-11-08 16:14:00 115 mm[Hg] Univer sity of pressure [facility] Branch Diastolic blood 2020-11-08 16:14:00 73 mm[Hg] Unive rsity of pressure [facility] Branch Heart rate 2020-11-08 16:14:00 66 /min Universi ty of [facility] Body temperature 2020-11-08 16:14:00 36.72 [facility] height 2020-11-08 16:14:00 149.9 cm [facility] acute hospital Body weight 2020-11-08 16:14:00 79.379 kg General acute hospital BMI 2020-11-08 16:14:00 35.35 kg/m2 General acute hospital Procedures Procedure Date / Time Performed Performing Clinician [facility] e US ABDOMEN LIMITED 2020-11-11 18:40:00 Asim Carr [facility] ASSIGNMENT OF BENEFITS 2020-11-08 15:53:47 Doctor Unassigned, No [facility] Name [facility] [id number] 2020-04-10 00:00:00 LISA WALLACE [facility] Encounters Start End Encounter Admission Attending Care Care Encounter Source Date/Time Date/Time Type Type Clinicians Facility Department ID 2020-04-09 Inpatient DAISY Murguia [facility] [id number] [facility] 19:56:00 Jacquie [id number] [facility] 2020-11-29 2020-11-[address] [facility] [id number] Univers 10:00:00 10:00:00 [id number] rach [facility] 2020-11-11 2020-11-11 Hospital Person, UNIVERSIT [id number] Univers 13:00:00 23:59:00 Encounter Asim ONOFRE [id number] ity of CLINICS [id number] [facility] s [id number] [facility] 806 Branch 2020-11-11 2020-11-11 Outpatient R PERSON, [facility] [id number] Univers 13:00:00 13:00:00 ASIM [id number] shanony [facility] 2020-11-11 2020-11-11 Outpatient R PERSON, [facility] [id number] Univers 00:00:00 00:00:00 ASIM loyd [facility] 2020-11-08 2020-11-08 Manager Corporate [facility] UNIVERSIT [id number] Univers 11:59:04 12:14:04 Visit Asim Carr [facility] [id number] ity [id number] [id number] [facility] 316 Branch 2020-11-08 2020-11-08 Office Service/[place], Surgery C UNIVERS [id number] Univers 10:55:48 11:51:22 Visit Person, [facility] [id number] ity [id number] [id number] [facility] 203 Branch 2020-11-08 2020-11-[address] [facility] [id number] Univers 11:00:00 11:00:00 [id number] ity [facility] 2020-11-08 2020-11-[address] [facility] [id number] Univers 11:00:00 11:00:00 ity [facility] 2020-11-08 2020-11-08 Orders Doctor DM [id number] Univers 00:00:00 00:00:00 Only Unassigned, SUDHAKAR [id number] ity of [place] [facility] [id number] [place] as [id number] [facility] 009 Branch 2020-04-19 2020-04-19 Outpatient DAISY Murguia, [facility] CL45 [id number] [facility] 14:59:00 14:59:00 Jacquie [id number] [facility] Results Test Description Test Time Test Comments [...] range due to change in reagent. 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 [facility] [id number] 04:17:00 Test Item Value Reference Range Interpretation Comments GLUBED (test code = 74 mg/dL 74-106 N Performe d by certified GLUBED) 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 [facility] [id number] 00:29:00 Test Item Value Reference Range Interpretation Comments GLUBED (test code = 116 mg/dL 74-106 H Performe d by certified GLUBED) 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 [facility] AG HEPAT B [id number] 21:34:00 Test Item Value Reference Range Interpretation Comments AG HEPAT B SURF (test code Nonreactive Index Nonreactive = HBSAG) AB [id number] 21:34:00 Test Item Value Reference Range Interpretation Comments AB TREPONEMA (test code = Nonreactive Index NonReactive TREPAB) HIV 1 2 COMBO AG/AB [id number] 21:25:00 Test Item Value Reference Range Interpretation Comments HIV 1 2 COMBO AB/AG NON NONREACTIVE NONREACTIV E HIV AG/AB SCREEN REACTIVE P24 ANTIGEN (test code = NONREACTIVE [id number]) NONREACTIVE HIV 1&2 ANTIBODY NONREACTIVE THE HIV-1 P24 TEST HELPS DISTINGUISH ACU TE HIV-1INFECTIONF ROM ESTABLISHED HIV -1 INFECTION WHEN THE SPECIMEN ISPOSI TIVE FOR HIV-1 P24 A NTIGEN. HIV-1 P24 ANTIG EN IS HIGHEST IN THE FIRST FEW WEEKS AFTERINFECTION COMPREHENSIVE METABOLIC [id number] 21:16:00 Test Item Value Reference Range Interpretation [...] range due ALKP) to change in reagent. [id number] 21:15:00 Test Item Value Reference Range Interpretation Comments GLYCOSYLATED HEMOGLOBIN 5.5 % HbA1 [place] DIAGNOSIS: (HA1C) (test code = HbA1C GLYHGB) (%) ----- ----- Diab etic >6.4Prediabetes 5.7 - 6.4Normal <5.7 ESTIMATED AVERAGE 111 MG/DL GLUCOSE (test code = EAG) URINALYSIS [id number] 21:14:00 Test Item Value Reference Range Interpretation [...] code = FEW #/LPF FEW MUCU) URINALYSIS [id number] 21:12:00 Test Item Value Reference Range Interpretation [...] code = per HPF NONE BACU) URINALYSIS [id number] 21:12:00 Test Item Value Reference Range Interpretation [...] = per HPF NONE BACU) COMPREHENSIVE METABOLIC [id number] 21:01:00 Test Item Value Reference Range Interpretation [...] code = ALKP) COVID 19 Asymptomatic IH [id number] 20:55:00 Test Item Value Reference Range Interpretation Comments COVID 19 Asymptomatic IH AG (test NEGATIVE code = COVNONPUIAG) CBC W/AUTO [id number] 20:48:00 Test Item Value Reference Range Interpretation [...]
[2021-01-26] MEDS ORDERED: FAMOTIDINE 20 MG/2 ML VIAL IV ONE (20:13)
[2021-01-26] MEDS ORDERED: ONDANSETRON 4 MG/2 ML VIAL ONE (20:13)
[2021-01-26 20:25] LABS: Urine Blood Trace-intact (Negative); Urine Glucose Negative (Negative); Urine Protein Negative (Negative); Urine Specific Gravity >=1.030 (1.005-1.030)
[2021-01-26 20:45] LABS: ALT/SGPT 183 U/L (12-78); AST/SGOT 255 U/L (15-37); Albumin 3.9 g/dL (3.4-5.0); Alkaline Phosphatase 142 U/L (45-117); BUN Blood Urea Nitrogen 11 mg/dL (7-18); Bicarbonate 28 mmol/L (21-32); Bilirubin Direct 0.3 mg/dL (0-0.2); Bilirubin Total 0.5 mg/dL (0.2-1.0); Glucose Level 123 mg/dL (74-106); Lipase 204 U/L (73-393); Magnesium 2.2 mg/dL (1.8-2.4); Potassium 3.7 mmol/L (3.5-5.1); Protein, Total 8.6 g/dL (6.4-8.2); Sodium Level 140 mmol/L (136-145)
[2021-01-26 21:01] LABS: Absolute Lymphocytes (CBC) 1.2 K/uL (0.7-4.9); Basophils % 0.4 % (0-1.3); Hematocrit 41.5 % (36.0-45.0); Lymphocytes % 9.2 % (15.3-44.8); MPV 6.8 fL (7.6-11.3); RBC Red Blood Cell Count 4.89 M/uL (3.86-4.86)
[2021-01-26 21:12] LABS: Blood Morphology Comment NOT SEEN (NOT SEEN); Platelet Estimate INCR; White Blood Cell Scan OK (OK)
[2021-01-26] MEDS ORDERED: CIPROFLOXACIN HCL 500 MG TAB ONE (23:22)
[2021-01-26] MEDS ORDERED: CEFTRIAXONE 1000 MG/VIAL ONE (23:22)
[2021-01-26] MEDS ORDERED: DICYCLOMINE HCL 10 MG CAP ONE (23:22)
--- NOTE | 2021-01-26 23:32 | ER ---
Nurse's Notes [facility] Name: Xiomara Huertas Age: 31 yrs Sex: Female : 1990 Arrival Date: 01/26/2021 Time: 17:59 Bed 14 Private MD: Diagnosis: Other cholelithiasis without obstruction Presentation: 01/26 18:11 Chief complaint: Patient states: RUQ pain and nausea that began 1 hour ago. Pt states ss that she knows she has gallstones, but has not yet followed up with general surgery. Coronavirus screen: Client denies travel out of the [place] in the last 14 days. Ebola Screen: Patient denies exposure to infectious person. Patient denies travel to an Ebola-affected area in the 21 days before illness onset. Initial Sepsis Screen: Does the patient meet any 2 criteria? No. Patient's initial sepsis screen is negative. Does the patient have a suspected source of infection? No. Patient's initial sepsis screen is negative. Risk Assessment: Do you want to hurt yourself or someone else? Patient reports no desire to harm self or others. Onset of symptoms was January 26, 2021. 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 - Social history:: Smoking status: Patient denies any tobacco usage or history of. Screenin:51 Abuse screen: Denies threats or abuse. Nutritional screening: No deficits noted. vg1 Tuberculosis screening: No symptoms or risk factors identified. Fall Risk No fall in past 12 months (0 pts). No secondary diagnosis (0 pts). IV access (20 points). Ambulatory Aid- None/Bed Rest/Nurse Assist (0 pts). Gait- Normal/Bed Rest/Wheelchair (0 pts) Mental Status- Oriented to own ability (0 pts). Total Alexandre Fall Scale indicates No Risk (0-24 pts). Assessment: 19:51 General: Appears in no apparent distress. uncomfortable, Behavior is calm, cooperative. vg1 Pain: Complains of pain in epigastric area and right upper quadrant Pain currently is 0 out of 10 on a pain scale. at worst was 10 out of 10 on a pain scale. Pain began 2 hours ago. Neuro: Level of Consciousness is awake, alert, obeys commands, Oriented to person, place, time, situation. Cardiovascular: Patient's skin is warm and dry. Respiratory: Airway is patent Respiratory effort is even, unlabored. GI: Abdomen is round non-distended, Last BM was January 26, 2021. Bowel sounds present X 4 quads. Abd is soft and non tender X 4 quads. Reports nausea, Patient currently denies diarrhea, vomiting. : No signs and/or symptoms were reported regarding the genitourinary system. EENT: No signs and/or symptoms were reported regarding the EENT system. Derm: Skin is intact, is healthy with good turgor. Musculoskeletal: Circulation, motion, and sensation intact. 21:30 Reassessment: Patient appears in no apparent distress at this time. Patient and/or vg1 family updated on plan of care and expected duration. Pain level reassessed. Patient is alert, oriented x 3, equal unlabored respirations, skin warm/dry/pink. Pt states lower ABD pain 2/10. 22:25 Reassessment: Patient appears in no apparent distress at this time. No changes from vg1 previously documented assessment. Patient and/or family updated on plan of care and expected duration. Pain level reassessed. Patient is alert, oriented x 3, equal unlabored respirations, skin warm/dry/pink. 23:30 Reassessment: Patient appears in no apparent distress at this time. No changes from vg1 previously documented assessment. Patient is alert, oriented x 3, equal unlabored respirations, skin warm/dry/pink. 23:57 Reassessment: Patient appears in no apparent distress at this time. Patient and/or vg1 family updated on plan of care and expected duration. Pain level reassessed. Patient is alert, oriented x 3, equal unlabored respirations, skin warm/dry/pink. Patient denies pain at this time. Vital Signs: 18:11 BP 128 / 77; Pulse 84; Resp 16; Temp 97.4(TE); Pulse Ox 100% on R/A; Weight 81.65 kg; ss Height 4 ft. 1 in. (124.46 cm); Pain 10/10; 19:45 BP 132 / 80; Pulse 84; Resp 16; Pulse Ox 100% ; vg1 20:00 BP 114 / 83; Pulse 86; Resp 16; Pulse Ox 100% ; vg1 20:45 BP 118 / 68; Pulse 88; Resp 16; Pulse Ox 100% ; vg1 22:25 BP 129 / 81; Pulse 80; Resp 14; Pulse Ox 100% ; vg1 23:31 BP 113 / 76; Pulse 83; Resp 16; Pulse Ox 100% ; vg1 18:11 Body Mass Index 52.71 (81.65 kg, 124.46 cm) ED Course: 17:59 Patient arrived in ED. as 18:12 Triage completed. ss 18:12 Arm band placed on right wrist. ss 19:47 Annie Fung, RN is Primary Nurse. vg1 19:51 Patient has correct armband on for positive identification. Call light in reach. Side vg1 rails up X 1. 19:51 No provider procedures requiring assistance completed. vg1 19:53 Arya Aiken PA is PHCP. cp 19:54 Ranulfo Harris MD is Attending Physician. cp 20:05 Initial lab(s) drawn, by me, sent to lab. Inserted saline lock: 20 gauge in right vg1 antecubital area, using aseptic technique. Blood collected. 20:40 US Abdomen Limited In Process Unspecified. EDMS 22:19 CT Abd/Pelvis - IV Contrast Only In Process Unspecified. EDMS 23:31 Ruel Serrato MD is Referral Physician. cp 23:58 IV discontinued, intact, bleeding controlled, No redness/swelling at site. Pressure vg1 dressing applied. Administered Medications: 20:15 Drug: Zofran (Ondansetron) 4 mg Route: IVP; Site: right antecubital; vg1 21:57 Follow up: Response: No adverse reaction vg1 20:17 Drug: Pepcid (famotidine) 20 mg Route: IVP; Site: right antecubital; vg1 21:57 Follow up: Response: Marked relief of symptoms vg1 23:25 Drug: Rocephin - (cefTRIAXone) 1 grams Route: IVPB; Infused Over: 30 mins; Site: right vg1 antecubital; 23:59 Follow up: IV Status: Completed infusion vg1 23:30 Drug: Bentyl (dicyclomine) 20 mg Route: PO; vg1 23:59 Follow up: Response: Medication administered at discharge. vg1 23:30 Drug: Ciprofloxacin 500 mg Route: PO; vg1 23:59 Follow up: Response: Medication administered at discharge. vg1 Outcome: 23:32 Discharge ordered by MD. cp 23:58 Discharged to home ambulatory, with family. vg1 23:58 Condition: stable 23:58 Discharge instructions given to patient, Instructed on discharge instructions, follow up and referral plans. medication usage, Demonstrated understanding of instructions, follow-up care, medications, Prescriptions given X 3. 23:58 Patient left the ED. vg1 Signatures: Dispatcher [employer] EDMS Cecille Serrato Shelby, RN RN ss Arya Aiken PA PA cp Garcia, Victoria RN RN vg1 Corrections: (The following items were deleted from the chart) 21:32 19:51 BP 132 / 80; Pulse 84bpm; Resp 16bpm; Pulse Ox 100%; vg1 vg1
--- NOTE | 2021-01-26 23:32 | EDPHYS ---
Physician Documentation [facility] Name: Xiomara Huertas Age: 31 yrs Sex: Female : 1990 Arrival Date: 01/26/2021 Time: 17:59 Bed 14 Private MD: ED Physician Ranulfo Harris HPI: 01/26 20:10 This 31 yrs old Female presents to ER via Ambulatory with complaints of cp Epigastric Pain - gallbladder attack. 20:10 The patient presents with abdominal pain in the right upper quadrant. Onset: The cp symptoms/episode began/occurred today, about an hour prior to arrival. The symptoms radiate to right back. Associated signs and symptoms: Pertinent positives: nausea and vomiting, Pertinent negatives: chest pain, constipation, diarrhea, fever, headache, shortness of breath, vomiting blood. The symptoms are described as constant. Severity of pain: in the emergency department the pain has improved markedly. The patient has experienced similar episodes in the past, multiple times, today's symptoms are similar, to when the patient was apparently diagnosed with gallstones. 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 - Social history:: Smoking status: Patient denies any tobacco usage or history of. ROS: 20:15 Constitutional: Negative for body aches, chills, fever, poor PO intake. cp 20:15 Eyes: Negative for injury, pain, redness, and discharge. cp 20:15 ENT: Negative for ear pain, sore throat, difficulty swallowing, difficulty handling secretions. 20:15 Cardiovascular: Negative for chest pain, palpitations. 20:15 Respiratory: Negative for cough, shortness of breath, wheezing. 20:15 Abdomen/GI: Positive for abdominal pain, nausea and vomiting, Negative for diarrhea, constipation, hematemesis. 20:15 Back: Positive for radiated pain, of the right mid back, Negative for injury or acute deformity, decreased range of motion. 20:15 : Negative for urinary symptoms. 20:15 Neuro: Negative for altered mental status, dizziness, headache, numbness, weakness. 20:15 All other systems are negative. Exam: 20:20 Constitutional: The patient appears in no acute distress, alert, awake, cp non-diaphoretic, non-toxic, well developed, well nourished. 20:20 Head/Face: Normocephalic, atraumatic. cp 20:20 Eyes: Periorbital structures: appear normal, Conjunctiva: normal, no exudate, no injection, Sclera: no appreciated abnormality, Lids and lashes: appear normal, bilaterally. 20:20 ENT: External ear(s): are unremarkable, Nose: is normal, Mouth: Lips: moist, Oral mucosa: moist, Posterior pharynx: Airway: no evidence of obstruction, patent. 20:20 Chest/axilla: Inspection: normal. 20:20 Cardiovascular: Rate: normal, Rhythm: regular. 20:20 Respiratory: the patient does not display signs of respiratory distress, Respirations: normal, no use of accessory muscles, no retractions, labored breathing, is not present, Breath sounds: are clear throughout, no decreased breath sounds, no stridor, no wheezing. 20:20 Abdomen/GI: Inspection: abdomen appears normal, Bowel sounds: active, all quadrants, Palpation: soft, in all quadrants, mild abdominal tenderness, in the right upper quadrant, rebound tenderness, is not appreciated, voluntary guarding, is not appreciated, involuntary guarding, is not appreciated. 20:20 Back: pain, that is very mild, of the right mid back, CVA tenderness, is absent. 20:20 Neuro: Orientation: to person, place \T\ time. Mentation: is normal. Vital Signs: 18:11 BP 128 / 77; Pulse 84; Resp 16; Temp 97.4(TE); Pulse Ox 100% on R/A; Weight 81.65 kg; ss Height 4 ft. 1 in. (124.46 cm); Pain 10/10; 19:45 BP 132 / 80; Pulse 84; Resp 16; Pulse Ox 100% ; vg1 20:00 BP 114 / 83; Pulse 86; Resp 16; Pulse Ox 100% ; vg1 20:45 BP 118 / 68; Pulse 88; Resp 16; Pulse Ox 100% ; vg1 22:25 BP 129 / 81; Pulse 80; Resp 14; Pulse Ox 100% ; vg1 23:31 BP 113 / 76; Pulse 83; Resp 16; Pulse Ox 100% ; vg1 18:11 Body Mass Index 52.71 (81.65 kg, 124.46 cm) ss MDM: 19:56 Patient medically screened. cp 21:00 Differential diagnosis: cholecystitis, Cholelithiasis, pancreatitis, Peptic Ulcer cp Disease, Perf. Duodenal Ulcer, Perf. Gastric Ulcer, Pyelonephritis, Ureterolithiasis, urinary tract infection. 23:10 Data reviewed: vital signs, nurses notes, lab test result(s), radiologic studies, plain cp films, ultrasound. 23:16 ED course: VSS. Pain and nausea markedly improved in ED. Consult with DR Serrato and cp will start patient on oral Cipro and discharge to home. Patient instructed to contact office of DR Serrato in morning for immediate appointment to discuss cholecystectomy. 23:31 Counseling: I had a detailed discussion with the patient and/or guardian regarding: the cp historical points, exam findings, and any diagnostic results supporting the discharge/admit diagnosis, lab results, radiology results, the need for outpatient follow up, for definitive care, a general surgeon, to return to the emergency department if symptoms worsen or persist or if there are any questions or concerns that arise at home. 23:31 Response to treatment: the patient's symptoms have markedly improved after treatment, cp and as a result, I will discharge patient. 01/26 20:04 Order name: Basic Metabolic Panel; Complete Time: 21:17 cp 01/26 21:18 Interpretation: Normal except: GLUC 123. cp 01/26 20:04 Order name: CBC with Diff; Complete Time: : cp 01/26 21: Interpretation: Normal except: WBC 12.80; RBC 4.89; MCV 84.9; MCH 28.2; PLT 514; MPV cp 6.8; JEEVAN% 85.5; LYM% 9.2; NEUT A 10.9. 01/26 20:04 Order name: Hepatic Function; Complete Time: 21:17 cp 01/26 21: Interpretation: Normal except: AST 255; ALT 183; ALK 142; BILID 0.3; TP 8.6; GLOB 4.7; cp A/G 0.8. 01/26 20:04 Order name: Lipase; Complete Time: 21:17 cp 01/26 20:04 Order name: Magnesium; Complete Time: 21:17 cp 01/26 20:24 Order name: Urine Dipstick-Ancillary; Complete Time: 21:17 EDMS 01/26 21:20 Interpretation: Normal except: UBLD Trace-intact. cp 01/26 20:05 Order name: US Abdomen Limited cp 01/26 20:26 Order name: Urine --Ancillary (enter results); Complete Time: 21:17 cs9 01/26 21:12 Order name: CBC Smear Scan; Complete Time: 21:17 EDMS 01/26 21:38 Order name: CT Abd/Pelvis - IV Contrast Only cp 01/26 20:04 Order name: IV Saline Lock; Complete Time: 20:11 cp 01/26 20:04 Order name: Labs collected and sent; Complete Time: 20:11 cp 01/26 20:04 Order name: Urine Test (obtain specimen); Complete Time: 20:25 cp 01/26 20:04 Order name: Urine Dipstick-Ancillary (obtain specimen); Complete Time: 20:25 cp 01/26 20:05 Order name: NPO; Complete Time: 20:11 cp Administered Medications: 20:15 Drug: Zofran (Ondansetron) 4 mg Route: IVP; Site: right antecubital; vg1 21:57 Follow up: Response: No adverse reaction vg1 20:17 Drug: Pepcid (famotidine) 20 mg Route: IVP; Site: right antecubital; vg1 21:57 Follow up: Response: Marked relief of symptoms vg1 23:25 Drug: Rocephin - (cefTRIAXone) 1 grams Route: IVPB; Infused Over: 30 mins; Site: right vg1 antecubital; 23:59 Follow up: IV Status: Completed infusion vg1 23:30 Drug: Bentyl (dicyclomine) 20 mg Route: PO; vg1 23:59 Follow up: Response: Medication administered at discharge. vg1 23:30 Drug: Ciprofloxacin 500 mg Route: PO; vg1 23:59 Follow up: Response: Medication administered at discharge. vg1 Disposition: 01/27 06:17 Co-signature as Attending Physician, Ranulfo Harris MD. [email or web address] Disposition Summary: 01/26/21 23:32 Discharge Ordered Location: Home cp Problem: an ongoing problem cp Symptoms: have improved cp Condition: Stable cp Diagnosis - Other cholelithiasis without obstruction cp Followup: cp - With: Ruel Serrato MD - When: Tomorrow - Reason: Recheck today's complaints Discharge Instructions: - Discharge Summary Sheet cp - Cholelithiasis cp Forms: - Medication Reconciliation Form cp - Thank You Letter cp - Antibiotic Education cp - Prescription Opioid Use cp Prescriptions: - Zofran 4 mg Oral Tablet - take 1 tablet by ORAL route every 12 hours As needed; 20 tablet; Refills: 0, cp Product Selection Permitted - Cipro 500 mg Oral Tablet - take 1 tablet by ORAL route every 12 hours for 7 days; 14 tablet; Refills: 0, cp Product Selection Permitted - dicyclomine 20 mg Oral Tablet - take 1 tablet by ORAL route 4 times per day; 30 tablet; Refills: 0, Product cp Selection Permitted Signatures: Dispatcher [employer] Yuly Arboleda RN RN ss Arya Aiken PA PA cp Garcia, Victoria, RN RN vg1 Ranulfo Harris MD MD [email or web address]
[2021-01-27 00:07] VITALS: TEMP 97.4; O2SAT 100
[2021-01-27 00:13] VITALS: BP 113/76
--- NOTE | 2021-01-27 10:14 | RAD REPORT ---
EXAM DESCRIPTION: CT - Abdomen Pelvis W Contrast - 01/27/2021 6:28 am CLINICAL HISTORY: ABD PAIN. COMPARISON: CT of the abdomen and pelvis without contrast from September 17, 2016. TECHNIQUE: CT of the abdomen and pelvis was performed following intravenous administration of iodina shane contrast. Arterial phase images through the abdomen, and portal venous phase images through the a bdomen and pelvis were obtained. Oral contrast was not administered. Axial, coronal, and sagittal sof t tissue window reconstructions were created and sent to PACS. This exam was performed according to our departmental dose-optimization program, which includes autom ated exposure control, adjustment of the mA and/or kV according to patient size and/or use of iterati ve reconstruction technique. FINDINGS: Thoracic: No significant abnormality. Hepatobiliary: No concerning hepatic lesion identified. The portal veins are patent. Gallstones in th e gallbladder. No gallbladder wall thickening. No biliary ductal dilatation. Pancreas: Unremarkable. Spleen: Unremarkable. Gastrointestinal: No evidence of bowel obstruction or perienteric inflammation. The appendix is surgi luh absent. Adrenals: No abnormality identified in either adrenal gland. Renal: No concerning parenchymal abnormality in either kidney. No hydronephrosis or urolithiasis. Bladder/Reproductive: Unremarkable appearance of the urinary bladder by CT technique. Unremarkable CT appearance of the uterus and ovaries. Vascular/Lymphatics: No lymphadenopathy identified by CT size criteria. Abdominal aorta is normal in caliber. Musculoskeletal: No concerning osseous lesion identified. Fluid / peritoneum: No significant free fluid. No free intraperitoneal air identified. IMPRESSION: 1. No acute abnormality identified in the abdomen or pelvis by CT. 2. Cholelithiasis without evidence of acute cholecystitis. 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 The interpreting r adiologist is fully responsible for the content of the report.
--- NOTE | 2021-01-27 10:33 | RAD REPORT ---
EXAM DESCRIPTION: US - Abdomen Exam Limited - 01/26/2021 8:40 pm CLINICAL HISTORY: RUQ abdomen pain COMPARISON: Abdomen Exam Limited dated 10/27/2020 FINDINGS: The gallbladder demonstrates multiple shadowing gallstones No pericholecystic fluid or gal lbladder wall thickening. The common bile duct is normal measuring 2 mm. The liver demonstrates no findings of intrahepatic biliary dilatation. IMPRESSION: Cholelithiasis without sonographic evidence acute cholecystitis.
== END 2021-01-26 23:58 | disposition home or self-care (01) ==
LOC: ER 17:59
DX: K80.80 Other cholelithiasis without obstruction (principal)
CPT/HCPCS: 96365; 85025; 80048; 36415; 83735; 81025; 80076; 81003; 83690; 74177; 76705; 96375; 99284; Q9967; J2405

== ENCOUNTER 2024-02-21 07:59 | Emergency (ER) | payer OTHER ==
--- OUTSIDE RECORDS SUMMARY | 2024-02-21 08:03 | XMS REPORT | Continuity of Care Document ---
Author Name Unknown Address [address] [facility] [address] [place] [address] [facility] thconnect Address [address] [facility] [address] [place] [address] Care Team Providers Care [employer] Salesperson Name Role Phone Be Cabral, [facility] Primary Care Physician Jacquie Murguia CNM Attending Clinician Asim Kaur MD Attending Clinician ASIM CARR Attending Clinician Unavailable [place] Attending Clinician Unavailable Service/[place], Surgery C Attending Clinician U jolie Doctor Unassigned, [place] Attending Clinician U Sly Marks Admitting Clinician Unavaila Jacquie Whitfield CNM Admitting Clinician Juan gtz Payers Payer Name Policy Type Policy Number Effective Date Expirati on Date Source [facility] STAR [id number] 2022 00:00:00 [id number]- [id number] [id number], [place] [address]Lrujth id [id number] 2013 [facility]:00[facility]00 [facility] GRANTMILY PLANNING [id number] 2015-Arnie [id number], [place] [address]Kmayod [id number] 2014 00:00:00 [facility] CIGNACIGNA [id number] /2018-PresentHMO /PPO/POS [id number] 2017 00:00:00 [facility] Problems Condition Name Condition Details Condition Category Status Onset Date Resolution Date Last Treatment Date Treating Clinician Comments Source Acquired hypothyroi dism Acquired hypothyroi dism Disease Active 06-14 00:00: 00 [facility] Thyroid nodule Thyroid nodule Disease Active 06-14 00:00: 00 [facility] Surveillan ce of previously prescribed contracept maximilian method Surveillan ce of previously prescribed contracept maximilian method Disease Active 05-16 00:00: 00 Overview: Formattin g of this note might be different from the original. 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 Nexplanon in place Nexplanon in place Disease Active 05-16 00:00: 00 [facility] Encounter for routine gynecologi caridad examinatio n Encounter for routine gynecologi caridad examinatio n Disease Active 05-16 00:00: 00 Overview: Formattin g of this note might be different from the original. 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 Overweight Overweight Disease Active 05-16 00:00: 00 Overview: Formattin g of this note might be different from the original. 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 ASCUS on Pap smear ASCUS on Pap smear Disease Active 05-11 00:00: 00 Overview: Formattin g of this note might be different from the original. Negative HPV. Repeat in [address] [facility] Allergies, Adverse Reactions, Alerts Allergy Name Allergy Type Status Severity Reaction(s) Onset Date Inactive Date Treating Clinician Comments Source No Known Allergie s DA Active U 04-09 00:00: 00 [facility] NO KNOWN ALLERGIE S Drug Class Active [facility] Social History Social Habit Start Date Stop Date Quantity Comments Source Exposure to SARS-CoV-2 (event) Not sure [facility] Tobacco use and exposure 2020-11-08 00:00:00 2020-11-08 00:00:00 Never used [facility] Alcohol intake 2020-11-08 00:00:00 2020-11-08 00:00:00 Current non-drinker of alcohol (finding) [facility] Sex Assigned At 1990 00:00:00 1990 00:00:00 [facility] Smoking Status Start Date Stop Date Source Never smoker [facility] Medications Ordered Medication Name Filled Medication Name Start Date Stop Date Current Medication? Ordering Clinician Indication Dosage Frequency Signature (SIG) Comments Components Source levothyroxi ne 50 mcg tablet 2023-03 00:00: 00 Yes mcg Sandro Young citalopram 10 mg tablet 2023-03 00:00: 00 Yes 1mg Sandro Young prednisone 5 mg tablet 2023-03 00:00: 00 Yes 1mg Sandro Young fluticasone propionate 50 mcg/actuati on nasal spray,suspe nsion 2023-03 00:00: 00 Yes 2mcg/ac tuation Sandro Young amoxicillin 500 mg capsule 2023-03 00:00: 00 Yes 1mg Sandro Young levothyroxi ne 50 mcg tablet 10-30 00:00: 00 Yes mcg Sandro Young levothyroxi ne (SYNTHROID) 75 mcg tablet 11-07 00:00: 00 Yes [id number] 75ug Take 1 tablet by mouth every morning. Brand necessary [facility] liothyronin e (CYTOMEL) 5 mcg tablet 11-06 00:00: 00 Yes [id number] 5ug Take 1 tablet by mouth daily. [facility] Immunizations Ordered Immunization Name Filled Immunization Name Date Status Comments Source Tdap Tdap 2022-08-14 00:00:00 Completed Sandro Young HPV 2013-11-02 00:00:00 Completed [facility] HPV 2013-11-02 00:00:00 Completed [facility] HPV 2013-11-02 00:00:00 Completed [facility] HPV 2013-11-02 00:00:00 Completed [facility] HPV 2013-06-04 00:00:00 Completed [facility] HPV 2013-06-04 00:00:00 Completed [facility] HPV 2013-06-04 00:00:00 Completed [facility] HPV 2013-06-04 00:00:00 Completed [facility] HPV 2013-04-21 00:00:00 Completed [facility] HPV 2013-04-21 00:00:00 Completed [facility] HPV 2013-04-21 00:00:00 Completed [facility] HPV 2013-04-21 00:00:00 Completed [facility] Td 2006-03-11 00:00:00 Completed [facility] Td 2006-03-11 00:00:00 Completed [facility] Td 2006-03-11 00:00:00 Completed [facility] Td 2006-03-11 00:00:00 Completed [facility] Vital Signs Vital Name Observation Time Observation Value Comments S ource Systolic blood pressure 2020-11-08 16:14:00 115 mm[Hg] [place] [facility] Diastolic blood pressure 2020-11-08 16:14:00 73 mm[Hg] [place] [facility] Heart rate 2020-11-08 16:14:00 66 /min [facility] Body temperature 2020-11-08 16:14:00 36.72 Chitra [facility] Body height 2020-11-08 16:14:00 149.9 cm [facility] Body weight 2020-11-08 16:14:00 79.379 kg [facility] BMI 2020-11-08 16:14:00 35.35 kg/m2 [facility] BP Systolic 2024-02-11 15:42:00 115 mm[Hg] Donny Young BP Diastolic 2024-02-11 15:42:00 69 mm[Hg] Osmin phen Patricia Young Weight Measured 2024-02-11 15:42:00 177.40 pounds Sandro Young Height Measured 2024-02-11 15:42:00 59.00 inches Sandro F [facility] Body Temperature 2024-02-11 15:42:00 98.10 degrees Sandro F [facility] Heart Rate 2024-02-11 15:42:00 70.00 /min Lianet en F [facility]ector Respiratory Rate 2024-02-11 15:42:00 18.00 /min Sandro F Hector BP Systolic 2024-01-22 08:59:00 110 mm[Hg] Step hen F [facility]ector BP Diastolic 2024-01-22 08:59:00 70 mm[Hg] Osmin phen F [facility] Weight Measured 2024-01-22 08:59:00 174.00 pounds Sandro F Hector Height Measured 2024-01-22 08:59:00 59.00 inches Sandro F [facility]ector Body Temperature 2024-01-22 08:59:00 98.20 degrees Sandro F Hector Heart Rate 2024-01-22 08:59:00 79.00 /min Lianet en F [facility]ector Respiratory Rate 2024-01-22 08:59:00 18.00 /min Sandro F Hector BP Systolic 2023-12-20 09:20:00 123 mm[Hg] Step hen F Hector BP Diastolic 2023-12-20 09:20:00 80 mm[Hg] Osmin phen F [facility]ector Weight Measured 2023-12-20 09:20:00 171.00 pounds Sandro F Hector Height Measured 2023-12-20 09:20:00 59.06 inches Sandro F Hector Body Temperature 2023-12-20 09:20:00 Sandro F Hector Heart Rate 2023-12-20 09:20:00 81.00 /min Lianet en F Hector Respiratory Rate 2023-12-20 09:20:00 17.00 /min Sandro F Hector BP Systolic 2023-12-19 14:57:00 121 mm[Hg] Step hen F Hector BP Diastolic 2023-12-19 14:57:00 77 mm[Hg] Osmin phen F [facility]ector Weight Measured 2023-12-19 14:57:00 172.60 pounds Sandro F Hector Height Measured 2023-12-19 14:57:00 59.06 inches Sandro F Hector Body Temperature 2023-12-19 14:57:00 98.20 degrees Sandro F Hector Heart Rate 2023-12-19 14:57:00 97.00 /min Lianet en Patricia Young Respiratory Rate 2023-12-19 14:57:00 16.00 /min Sandro Young Respiratory Rate 2023-10-22 16:57:00 18.00 /min Sandro Young BP Systolic 2023-10-22 16:57:00 117 mm[Hg] Step hen Patricia Young BP Diastolic 2023-10-22 16:57:00 69 mm[Hg] Osmin phen Patricia Young Weight Measured 2023-10-22 16:57:00 174.20 pounds Sandro Young Height Measured 2023-10-22 16:57:00 59.06 inches Sandro Young Body Temperature 2023-10-22 16:57:00 98.10 degrees Sandro Young Heart Rate 2023-10-22 16:57:00 74.00 /min Lianet en Patricia Young Procedures Procedure Date / Time Performed Performing Clinicia n Source US ABDOMEN LIMITED 2020-11-11 18:40:00 Asim Carr [facility] ASSIGNMENT OF BENEFITS 2020-11-08 15:53:47 Docto r Unassigned, [place] [facility] [id number] 2020-04-10 00:00:00 LISA [facility] Encounters Start Date/Time End Date/Time Encounter Type Admission Type Attending [facility] Care Facility Care Department Encounter ID Source 2022-10-09 05:28:01 Outpatient [facility] [id number] [facility] 2020-04-09 19:56:00 Inpatient Jacquie Delgado [facility] [id number] [facility] 2024-02-11 15:37:30 2024-02-11 15:37:30 Outpatient SFA SFA [id number] Sandro Young 2024-02-11 00:00:00 2024-02-11 00:00:00 Outpatient Visit SFA [id number] Sandro Young 2024-01-22 08:58:53 2024-01-22 08:58:53 Outpatient SFA SFA [id number] Sandro Young 2024-01-22 00:00:00 2024-01-22 00:00:00 Outpatient Visit SFA [id number] Sandro Young 2023-12-20 09:19:57 2023-12-20 09:19:57 Outpatient SFA SFA [id number] Sandro Young 2023-12-19 14:50:53 2023-12-19 14:50:53 Outpatient SFA SFA [id number] Sandro Young 2023-12-19 00:00:00 2023-12-19 00:00:00 Outpatient Visit SFA [id number] Sandro Young 2023-10-31 14:20:40 2023-10-31 14:20:40 Outpatient SFA SFA [id number] Sandro Young 2023-10-29 08:10:39 2023-10-29 08:10:39 Outpatient SFA SFA [id number] Sandro Young 2023-10-22 16:44:50 2023-10-22 16:44:50 Outpatient SFA [id number] [id number] Sandro Young 2023-10-22 00:00:00 2023-10-22 00:00:00 Outpatient Visit SFA [id number] Sandro Young 2020-11-11 13:00:00 2020-11-11 23:59:00 Hospital Encounter Bruno [facility] [id number] [facility] 2020-11-11 00:00:00 2020-11-11 00:00:00 Outpatient [facility] [id number] 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 2020-11-08 10:55:48 2020-11-08 11:51:22 Office Visit Service/Gen surg, Surgery C Person, [facility] [id number] [facility] 2020-11-08 11:00:00 2020-11-08 11:00:00 [facility] [id number] [facility] 2020-11-08 00:00:00 2020-11-08 00:00:00 Orders Only Doctor Unassigned, [place] [facility] [id number] [facility] 2020-11-08 00:00:00 2020-11-08 00:00:00 Orders Only Doctor Unassigned, [place] [facility] [id number] [facility] 2020-05-13 05:12:30 2020-05-13 05:12:30 Outpatient DAISY Murguia Jacquie [facility] [id number] [facility] Results Test Description Test Time Test Comments Results Result Co mments Source Sandro Gomez HectorLIPID [id number] 00:00:00* Test Item Value Reference Range Interpretation Comme nts CHOLESTEROL (test code = 2210) 175 MG/DL TRIGLYCERIDES (test code = 2232) 99 MG/DL HDL CHOLESTEROL (test code = 2220) 72 MG/DL CALC LDL CHOL (test code = 2237) 84 MG/DL RISK RATIO LDL/HDL (test cod e = 2238) 1.17 RATIO Sandro Patricia YoungHEMOGLOBIN [id number] 00:00:00* Test Item Value Reference Range Interpretation Comme nts HEMOGLOBIN A1c (test code = 26282) 5.6 % Sandro YoungTSH, THIRD [id number] 00:00:00* Test Item Value Reference Range Interpretation Comme nts TSH, THIRD GENERATION (test code = 2821) 14.300 UIU/ML Sandro YoungFREE T4 (THYROXINE)2024-02-13 00:00:00* Test Item Value Reference Range Interpretation Comme nts FREE T4 (THYROXINE) (test co de = 2823) 0.75 NG/DL Sandro YoungTSH REFLEX TO FREE [id number] 00:00:00* Test Item Value Reference Range Interpretation Comme nts TSH REFLEX TO FREE T4 (test code = 2834) 0.075 UIU/ML Sandro YoungFREE T4 (THYROXINE) [REFLEX]2023-12-21 00:00:00* Test Item Value Reference Range Interpretation Comme nts FREE T4 (THYROXINE) (test co de = 2823) 1.87 NG/DL Sandro YoungTSH REFLEX TO FREE [id number] 00:00:00* Test Item Value Reference Range Interpretation Comme nts TSH REFLEX TO FREE T4 (test code = 2834) 0.075 UIU/ML Sandro YoungFREE T4 (THYROXINE) [REFLEX]2023-12-21 00:00:00* Test Item Value Reference Range Interpretation Comme nts FREE T4 (THYROXINE) (test co de = 2823) 1.87 NG/DL Sandro YoungTSH + FREE T4 [id number] 00:00:00* Test Item Value Reference Range Interpretation Comme nts TSH, THIRD GENERATION (test code = 2821) 6.650 UIU/ML FREE T4 (THYROXINE) (test co de = 2823) 0.93 NG/DL Sandro YoungTSH + FREE T4 [id number] 00:00:00* Test Item Value Reference Range Interpretation Comme nts TSH, THIRD GENERATION (test code = 2821) 6.650 UIU/ML FREE T4 (THYROXINE) (test co de = 2823) 0.93 NG/DL Sandro YoungTSH + FREE T4 [id number] 00:00:00* Test Item Value Reference Range Interpretation Comme nts TSH, THIRD GENERATION (test code = 2821) 6.650 UIU/ML FREE T4 (THYROXINE) (test co de = 2823) 0.93 NG/DL Sandro YoungCOMPREHENSIVE METABOLIC [id number] 10:20:00* Test Item Value Reference Range Interpretation Comme nts SODIUM (test code = NA) 140 mmol/L 136-145 N POTASSIUM (test code = K) 3.9 mmol/L 3.5-5.1 N CHLORIDE (test code = CL) 109.0 mmol/L 98-107 H CARBON DIOXIDE (test code = CO2) 25.0 mmol/L 21-32 N ANION GAP (test code = GAP) 9.9 10-20 L GLUCOSE (test code = GLU) 55 mg/dL 74-106 L BLOOD UREA NITROGEN (test code = BUN) 8 mg/dL 7-18 N GLOMERULAR FILTRATION RATE (test code = GFR) > 60 mL/min >=60 Estimated GFR by using Modified MDRD formula.Chronic kidney disease is defined as either kidney damageor GFR <60 mL/min/1.73 m2 for >3 months. CREATININE (test code = CREAT) 0.50 mg/dL 0.55-1.02 L Note change in reference range due to change in reagent. BUN/CREATININE RATIO (test code = BUN/CREA) 16.2 10-20 N TOTAL PROTEIN (test code = PROT) 5.0 gram/dL 6.4-8.2 L ALBUMIN (test code = ALB) 1.7 g/dL 3.4-5.0 L GLOBULIN (test code = GLOB) 3.3 gram/dL 2.7-4.2 N ALBUMIN/GLOBULIN RATIO (test code = A/G) 0.5 0.75-1.50 L CALCIUM (test code = CA) 7.8 mg/dL 8.5-10.1 L BILIRUBIN TOTAL (test code = BILT) 0.40 mg/dL 0.0-1.0 N SGOT/AST (test code = AST) 18 IUnit/L 15-37 N SGPT/ALT (test code = ALT) 18 IUnit/L 12-78 N ALKALINE PHOSPHATASE TOTAL (test code = ALKP) 162 IUnit/L 45-117 H Note change in reference range due to change in reagent. OLU LAV TOP INSTED OF [email or web address] 04/11/20 0605COMPREHENSIVE METABOLIC [id number] 10:11:00* Test Item Value Reference Range Interpretation Comme nts SODIUM (test code = NA) 140 mmol/L 136-145 N POTASSIUM (test code = K) 3.9 mmol/L 3.5-5.1 N CHLORIDE (test code = CL) 109.0 mmol/L 98-107 H CARBON DIOXIDE (test code = CO2) mmol/L 21-32 ANION GAP (test code = GAP) 10-20 GLUCOSE (test code = GLU) mg/dL 74-106 BLOOD UREA NITROGEN (test co de = BUN) mg/dL 7-18 GLOMERULAR FILTRATION RATE ( test code = GFR) mL/min >=60 CREATININE (test code = CREAT) mg/dL 0.55-1.02 BUN/CREATININE RATIO (test c ode = BUN/CREA) 10-20 TOTAL PROTEIN (test code = PROT) gram/dL 6.4-8.2 ALBUMIN (test code = ALB) g/dL 3.4-5.0 GLOBULIN (test code = GLOB) gram/dL 2.7-4.2 ALBUMIN/GLOBULIN RATIO (test code = A/G) 0.75-1.50 CALCIUM (test code = CA) mg/dL 8.5-10.1 BILIRUBIN TOTAL (test code = BILT) mg/dL 0.0-1.0 SGOT/AST (test code = AST) IUnit/L 15-37 SGPT/ALT (test code = ALT) IUnit/L 12-78 ALKALINE PHOSPHATASE TOTAL ( test code = ALKP) IUnit/L 45-117 [facility]LU [facility] INSTED OF [email or web address] 04/11/20 [email or web address] W/AUTO DIFF 2020-04-11 06:46:00* Test Item Value Reference Range Interpretation Comme nts WHITE BLOOD CELL (test code = WBC) 12.1 K/mm3 4.5-12.5 N RED BLOOD CELL (test code = RBC) 3.09 mill/mm3 3.7-5.2 L HEMOGLOBIN (test code = HGB) 9.4 gram/dL 11.5-15.5 L RESULT VERIFIED BY REPEAT ANALYSIS HEMATOCRIT (test code = HCT) 28.5 % 36.0-46.0 L MEAN CELL VOLUME (test code = MCV) 92.2 fL 80-98 N MEAN CELL HGB (test code = MCH) 30.4 picogram 27.0-33.0 N MEAN CELL HGB CONCETRATION (test code = MCHC) 33.0 gram/dL 33.0-36.0 N RED CELL DISTRIBUTION WIDTH (test code = RDW) 14.8 % 11.6-16.2 N RED CELL DISTRIBUTION WIDTH SD (test code = RDW-SD) 49.5 fL 37.0-51.0 N PLATELET COUNT (test code = PLT) 300 K/mm3 150-450 MEAN PLATELET VOLUME (test code = MPV) 9.6 fL 6.7-11.0 N NEUTROPHIL % (test code = NT%) 78.2 % 39.0-69.0 H IMMATURE GRANULOCYTE % (test code = IG%) 0.7 % 0.0-5.0 N LYMPHOCYTE % (test code = LY%) 14.4 % 25.0-55.0 L MONOCYTE % (test code = MO%) 6.0 % 0.0-10.0 N EOSINOPHIL % (test code = EO%) 0.4 % 0.0-5.0 N BASOPHIL % (test code = BA%) 0.3 % 0.0-1.0 N NUCLEATED RBC % (test code = NRBC%) 0.0 % 0-0 N NEUTROPHIL # (test code = NT#) 9.42 K/mm3 1.8-7.7 H IMMATURE GRANULOCYTE # (test code = IG#) 0.08 x10 3/uL 0-0.03 H LYMPHOCYTE # (test code = LY#) 1.74 K/mm3 1.0-5.0 N MONOCYTE # (test code = MO#) 0.72 K/mm3 0-0.8 N EOSINOPHIL # (test code = EO#) 0.05 K/mm3 0.0-0.5 N BASOPHIL # (test code = BA#) 0.04 K/mm3 0.0-0.2 N NUCLEATED RBC # (test code = NRBC#) 0.00 K/mm3 0.0-0.1 N COMMENTS TO DISPOSAL OPERATOR: [id number] 05:33:00* Test Item Value Reference Range Interpretation Comme nts GLUBED (test code = GLUBED) 88 mg/dL 74-106 N Performed by cer tified husker operator at [facility] [id number] 04:17:00* Test Item Value Reference Range Interpretation Comme nts GLUBED (test code = GLUBED) 74 mg/dL 74-106 N Performed by cer tified husker operator at [facility] [id number] 00:29:00* Test Item Value Reference Range Interpretation Comme nts GLUBED (test code = GLUBED) 116 mg/dL 74-106 H Performed by cer tified husker operator at [facility] AG HEPAT B [id number] 21:34:00* Test Item Value Reference Range Interpretation Comme nts AG HEPAT B SURF (test code = HBSAG) Nonreactive Index Nonreactive AB [id number] 21:34:00* Test Item Value Reference Range Interpretation Comme nts AB TREPONEMA (test code = TREPAB) Nonreactive Index NonReactive HIV 1 2 COMBO AG/AB [id number] 21:25:00* Test Item Value Reference Range Interpretation Comme nts HIV 1 2 COMBO AG/AB SCREEN (test code = [id number]) AB/AG NON REACTIVE NONREACTIVE NONREACTIVE HIV P24 ANTIGEN NONREACTIVE NONREACTIVE HIV 1&2 ANTIBODY NONREACTIVE THE HIV-1 P24 TEST HELPS DISTINGUISH ACUTE HIV-1INFECTIONFROM ESTABLISHED HIV-1 INFECTION WHEN THE SPECIMEN ISPOSITIVE FOR HIV-1 P24 ANTIGEN. HIV-1 P24 ANTIGEN IS HIGHEST IN THE FIRST FEW WEEKS AFTERINFECTION COMPREHENSIVE METABOLIC [id number] 21:16:00* Test Item Value Reference Range Interpretation Comme nts SODIUM (test code = NA) 138 mmol/L 136-145 N POTASSIUM (test code = K) 3.8 mmol/L 3.5-5.1 N CHLORIDE (test code = CL) 106.0 mmol/L 98-107 N CARBON DIOXIDE (test code = CO2) 23.0 mmol/L 21-32 N ANION GAP (test code = GAP) 12.8 10-20 N GLUCOSE (test code = GLU) 86 mg/dL 74-106 N BLOOD UREA NITROGEN (test code = BUN) 10 mg/dL 7-18 N GLOMERULAR FILTRATION RATE (test code = GFR) > 60 mL/min >=60 Estimated GFR by using Modified MDRD formula.Chronic kidney disease is defined as either kidney damageor GFR <60 mL/min/1.73 m2 for >3 months. CREATININE (test code = CREAT) 0.60 mg/dL 0.55-1.02 N Note change in reference range due to change in reagent. BUN/CREATININE RATIO (test code = BUN/CREA) 16.7 10-20 N TOTAL PROTEIN (test code = PROT) 7.5 gram/dL 6.4-8.2 N ALBUMIN (test code = ALB) 2.8 g/dL 3.4-5.0 L GLOBULIN (test code = GLOB) 4.7 gram/dL 2.7-4.2 H ALBUMIN/GLOBULIN RATIO (test code = A/G) 0.6 0.75-1.50 L CALCIUM (test code = CA) 8.8 mg/dL 8.5-10.1 N BILIRUBIN TOTAL (test code = BILT) 0.50 mg/dL 0.0-1.0 N SGOT/AST (test code = AST) 19 IUnit/L 15-37 N SGPT/ALT (test code = ALT) 28 IUnit/L 12-78 N ALKALINE PHOSPHATASE TOTAL (test code = ALKP) 273 IUnit/L 45-117 H Note change in reference range due to change in reagent. [id number] 21:15:00* Test Item Value Reference Range Interpretation Comme nts GLYCOSYLATED HEMOGLOBIN (HA1C) (test code = GLYHGB) 5.5 % HbA1 SUGGESTED DIAGNO SIS: HbA1C (%) ----- Diabetic >6.4Prediabetes 5.7 - 6.4Normal <5.7 ESTIMATED AVERAGE GLUCOSE (test code = EAG) 111 MG/DL URINALYSIS [id number] 21:14:00* Test Item Value Reference Range Interpretation Comme nts UA COLOR (test code = COLU) YELLOW YELLOW UA APPEARANCE (test code = APPU) CLEAR CLEAR UA GLUCOSE DIPSTICK (test code = DGLUU) NEGATIVE mg/dL NEGATIVE UA BILIRUBIN DIPSTICK (test code = BILU) NEGATIVE mg/dL NEGATIVE UA KETONE DIPSTICK (test code = KETU) 80 (3+) mg/dL NEGATIVE A UA SPECIFIC GRAVITY (test code = SGU) 1.017 1.001-1.035 UA BLOOD DIPSTICK (test code = YOLANDA) 1.0 mg/dL (3+) mg/dL NEGATIVE A UA PH DIPSTICK (test code = SONI) 6.0 5.0-8.0 UA PROTEIN DIPSTICK (test code = PROU) 20 (Trace) mg/dL NEGATIVE A UA UROBILINIOGEN DIPSTICK (test code = URO) Normal mg/dL NEGATIVE UA NITRITE DIPSTICK (test code = DAVID) NEGATIVE NEGATIVE UA LEUKOCYTE ESTERASE W REFLEX (test code = LEUUR) 75 Orin/uL (1+) Orin/uL NEGATIVE A UA WBC (test code = WBCU) 0-5 per HPF 0-5 UA RBC (test code = RBCU) 0-2 #/HPF 0-5 UA EPITHELIAL CELLS (test code = EPIU) FEW per HPF FEW UA BACTERIA (test code = BACU) TRACE #/HPF NONE UA MUCUS (test code = MUCU) FEW #/LPF FEW URINALYSIS [id number] 21:12:00* Test Item Value Reference Range Interpretation Comme nts UA COLOR (test code = COLU) YELLOW YELLOW UA APPEARANCE (test code = APPU) CLEAR CLEAR UA GLUCOSE DIPSTICK (test code = DGLUU) NEGATIVE mg/dL NEGATIVE UA BILIRUBIN DIPSTICK (test code = BILU) NEGATIVE mg/dL NEGATIVE UA KETONE DIPSTICK (test code = KETU) 80 (3+) mg/dL NEGATIVE A UA SPECIFIC GRAVITY (test code = SGU) 1.017 1.001-1.035 UA BLOOD DIPSTICK (test code = YOLANDA) 1.0 mg/dL (3+) mg/dL NEGATIVE A UA PH DIPSTICK (test code = SONI) 6.0 5.0-8.0 UA PROTEIN DIPSTICK (test code = PROU) 20 (Trace) mg/dL NEGATIVE A UA UROBILINIOGEN DIPSTICK (test code = URO) Normal mg/dL NEGATIVE UA NITRITE DIPSTICK (test code = DAVID) NEGATIVE NEGATIVE UA LEUKOCYTE ESTERASE W REFLEX (test code = LEUUR) 75 Orin/uL (1+) Orin/uL NEGATIVE A UA WBC (test code = WBCU) per HPF 0-5 UA RBC (test code = RBCU) per HPF 0-5 UA EPITHELIAL CELLS (test code = EPIU) per HPF Few UA BACTERIA (test code = BACU) per HPF NONE URINALYSIS [id number] 21:12:00* Test Item Value Reference Range Interpretation Comme nts UA COLOR (test code = COLU) YELLOW YELLOW UA APPEARANCE (test code = APPU) CLEAR CLEAR UA GLUCOSE DIPSTICK (test code = DGLUU) NEGATIVE mg/dL NEGATIVE UA BILIRUBIN DIPSTICK (test code = BILU) NEGATIVE mg/dL NEGATIVE UA KETONE DIPSTICK (test code = KETU) 80 (3+) mg/dL NEGATIVE A UA SPECIFIC GRAVITY (test code = SGU) 1.017 1.001-1.035 UA BLOOD DIPSTICK (test code = YOLANDA) 1.0 mg/dL (3+) mg/dL NEGATIVE A UA PH DIPSTICK (test code = SONI) 6.0 5.0-8.0 UA PROTEIN DIPSTICK (test code = PROU) 20 (Trace) mg/dL NEGATIVE A UA UROBILINIOGEN DIPSTICK (test code = URO) Normal mg/dL NEGATIVE UA NITRITE DIPSTICK (test code = DAVID) NEGATIVE NEGATIVE UA LEUKOCYTE ESTERASE W REFLEX (test code = LEUUR) 75 Orin/uL (1+) Orin/uL NEGATIVE A UA WBC (test code = WBCU) per HPF 0-5 UA RBC (test code = RBCU) per HPF 0-5 UA EPITHELIAL CELLS (test code = EPIU) per HPF Few UA BACTERIA (test code = BACU) per HPF NONE COMPREHENSIVE METABOLIC [id number] 21:01:00* Test Item Value Reference Range Interpretation Comme nts SODIUM (test code = NA) 138 mmol/L 136-145 N POTASSIUM (test code = K) 3.8 mmol/L 3.5-5.1 N CHLORIDE (test code = CL) 106.0 mmol/L 98-107 N CARBON DIOXIDE (test code = CO2) mmol/L 21-32 ANION GAP (test code = GAP) 10-20 GLUCOSE (test code = GLU) mg/dL 74-106 BLOOD UREA NITROGEN (test co de = BUN) mg/dL 7-18 GLOMERULAR FILTRATION RATE ( test code = GFR) mL/min >=60 CREATININE (test code = CREAT) mg/dL 0.55-1.02 BUN/CREATININE RATIO (test c ode = BUN/CREA) 10-20 TOTAL PROTEIN (test code = PROT) gram/dL 6.4-8.2 ALBUMIN (test code = ALB) g/dL 3.4-5.0 GLOBULIN (test code = GLOB) gram/dL 2.7-4.2 ALBUMIN/GLOBULIN RATIO (test code = A/G) 0.75-1.50 CALCIUM (test code = CA) mg/dL 8.5-10.1 BILIRUBIN TOTAL (test code = BILT) mg/dL 0.0-1.0 SGOT/AST (test code = AST) IUnit/L 15-37 SGPT/ALT (test code = ALT) IUnit/L 12-78 ALKALINE PHOSPHATASE TOTAL ( test code = ALKP) IUnit/L 45-117 COVID 19 Asymptomatic IH [id number] 20:55:00* Test Item Value Reference Range Interpretation Comme nts COVID 19 Asymptomatic IH AG (test code = COVNONPUIAG) NEGATIVE CBC W/AUTO [id number] 20:48:00* Test Item Value Reference Range Interpretation Comme nts WHITE BLOOD CELL (test code = WBC) 15.9 K/mm3 4.5-12.5 H RED BLOOD CELL (test code = RBC) 4.25 mill/mm3 3.7-5.2 N HEMOGLOBIN (test code = HGB) 12.5 gram/dL 11.5-15.5 N HEMATOCRIT (test code = HCT) 38.7 % 36.0-46.0 N MEAN CELL VOLUME (test code = MCV) 91.1 fL 80-98 N MEAN CELL HGB (test code = MCH) 29.4 picogram 27.0-33.0 N MEAN CELL HGB CONCETRATION (test code = MCHC) 32.3 gram/dL 33.0-36.0 L RED CELL DISTRIBUTION WIDTH (test code = RDW) 14.4 % 11.6-16.2 N RED CELL DISTRIBUTION WIDTH SD (test code = RDW-SD) 47.8 fL 37.0-51.0 N PLATELET COUNT (test code = PLT) 442 K/mm3 150-450 N MEAN PLATELET VOLUME (test c ode = MPV) 9.4 fL 6.7-11.0 N NEUTROPHIL % (test code = NT%) 79.0 % 39.0-69.0 H IMMATURE GRANULOCYTE % (test code = IG%) 0.6 % 0.0-5.0 N LYMPHOCYTE % (test code = LY%) 12.4 % 25.0-55.0 L MONOCYTE % (test code = MO%) 7.6 % 0.0-10.0 N EOSINOPHIL % (test code = EO%) 0.1 % 0.0-5.0 N BASOPHIL % (test code = BA%) 0.3 % 0.0-1.0 N NUCLEATED RBC % (test code = NRBC%) 0.0 % 0-0 N NEUTROPHIL # (test code = NT#) 12.51 K/mm3 1.8-7.7 H IMMATURE GRANULOCYTE # (test code = IG#) 0.10 x10 3/uL 0-0.03 H LYMPHOCYTE # (test code = LY#) 1.96 K/mm3 1.0-5.0 N MONOCYTE # (test code = MO#) 1.21 K/mm3 0-0.8 H EOSINOPHIL # (test code = EO#) 0.02 K/mm3 0.0-0.5 N BASOPHIL # (test code = BA#) 0.05 K/mm3 0.0-0.2 N NUCLEATED RBC # (test code = NRBC#) 0.00 K/mm3 0.0-0.1 N
[2024-02-21] MEDS ORDERED: ACETAMINOPHEN 500 MG TAB ONE (08:29)
[2024-02-21 09:32] LABS: SARS-CoV-2 Antigen CONTROL BLUE LINE VIS/BG OK; SARS-CoV-2 Antigen Rapid Res Negative (Negative)
--- NOTE | 2024-02-21 09:34 | EDPHYS ---
Physician Documentation [facility] Name: Xiomara Huertas Age: 34 yrs Sex: Female : 1990 Arrival Date: 02/21/2024 Time: 07:59 Bed 18 Private MD: ED Physician Steve Dumont HPI: 02/20 08:42 This 34 yrs old Female presents to ER via Ambulatory with complaints of sp3 Headache, Fever, Cough, Congestion. 08:42 . sp3 08:43 34-year-old female with history of gallstones, hypothyroidism presents with fever Tmax sp3 102, positive influenza contact her child, body aches, sore throat, dry cough, for the last 24 to 48 hours. She denies any chest pain, shortness of breath, abdominal pain, vomiting, diarrhea, or any other signs or symptoms on ROS at this time.. 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 - Infectious Disease History:: Denies. - Social history:: Smoking status: Patient denies any tobacco usage or history of. ROS: 08:46 Eyes: Negative for injury, pain, redness, and discharge, Neck: Negative for injury, sp3 pain, and swelling, Cardiovascular: Negative for chest pain, palpitations, and edema, Abdomen/GI: Negative for abdominal pain, nausea, vomiting, diarrhea, and constipation, Back: Negative for injury and pain, MS/Extremity: Negative for injury and deformity, Skin: Negative for injury, rash, and discoloration, Neuro: Negative for headache, weakness, numbness, tingling, and seizure, Psych: Negative for depression, anxiety, suicide ideation, homicidal ideation, and hallucinations, Allergy/Immunology: Negative for hives, rash, and allergies, Endocrine: Negative for neck swelling, polydipsia, polyuria, polyphagia, and marked weight changes, Hematologic/Lymphatic: Negative for swollen nodes, abnormal bleeding, and unusual bruising, 08:46 All other systems are negative, Exam: 08:47 Head/Face: Normocephalic, atraumatic. Eyes: Pupils equal round and reactive to light, sp3 extra-ocular motions intact. Lids and lashes normal. Conjunctiva and sclera are non-icteric and not injected. Cornea within normal limits. Periorbital areas with no swelling, redness, or edema. ENT: Nares patent. No nasal discharge, no septal abnormalities noted. External auditory canals are clear. Oropharynx with no redness, swelling, or masses, exudates, or evidence of obstruction, uvula midline. Mucous membranes moist. Neck: Trachea midline, no thyromegaly or masses palpated, and no cervical lymphadenopathy. Supple, full range of motion without nuchal rigidity, or vertebral point tenderness. No Meningismus. Chest/axilla: Normal chest wall appearance and motion. Nontender with no deformity. No lesions are appreciated. Respiratory: Lungs have equal breath sounds bilaterally, clear to auscultation and percussion. No rales, rhonchi or wheezes noted. No increased work of breathing, no retractions or nasal flaring. Abdomen/GI: Soft, non-tender, with normal bowel sounds. No distension or tympany. No guarding or rebound. No evidence of tenderness throughout. Back: No spinal tenderness. No costovertebral tenderness. Full range of motion. Skin: Warm, dry with normal turgor. Normal color with no rashes, no lesions, and no evidence of cellulitis. MS/ Extremity: Pulses equal, no cyanosis. Neurovascular intact. Full, normal range of motion. Neuro: Awake and alert, GCS 15, oriented to person, place, time, and situation. Cranial nerves II-XII grossly intact. Motor strength 5/5 in all extremities. Sensory grossly intact. Cerebellar exam normal. Normal gait. Psych: Awake, alert, with orientation to person, place and time. Behavior, mood, and affect are within normal limits. 08:47 Cardiovascular: Rate: tachycardic, Vital Signs: 08:23 BP 130 / 80; Pulse 105; Resp 22 S; Temp 102.1(O); Pulse Ox 98% on R/A; Weight 79.38 kg aa5 (R); Height 4 ft. 11 in. (R); 09:04 BP 124 / 84; Pulse 95; Resp 18 S; Pulse Ox 96% on R/A; kc6 09:42 BP 116 / 52; Pulse 102; Resp 19 S; Temp 100.1(O); Pulse Ox 96% on R/A; kc6 08:23 Body Mass Index 35.35 (79.38 kg, 149.86 cm) aa5 MDM: 08:28 Medical Screening Exam initiated sp3 08:47 Data reviewed: vital signs, nurses notes, lab test result(s). ED course: 34-year-old sp3 female with fever and URI symptoms. Differential diagnosis includes viral illness, influenza, COVID-19, strep pharyngitis, bronchitis, among others. I am not highly suspicious of pneumonia. Patient has had a positive influenza contact and that is the likely culprit. Tylenol given p.o. Disposition pending workup and patient course with Tamiflu likely added on regardless of influenza result.. 09:33 ED course: Flu a positive. Patient will be discharged on Tamiflu p.o. and follow-up to sp3 PCP.. 02/20 08:24 Order name: Flu; Complete Time: 09:33 aa5 02/20 08:24 Order name: SARS RAPID; Complete Time: 09:33 aa5 02/20 08:24 Order name: Strep; Complete Time: 09:35 aa5 02/20 09:37 Order name: Throat Culture EDMS Administered Medications: 08:42 Drug: Acetaminophen PO 1000 mg PO once Route: PO; 6 09:42 Follow up: Response: No adverse reaction; Temperature is decreased kc6 Disposition Summary: 02/21/24 09:34 Discharge Ordered Notes: Location: Home sp3 Condition: Stable sp3 Diagnosis - Influenza A sp3 Followup: sp3 - With: Private Physician - When: Upon discharge from the Emergency Department - Reason: Continuance of care Discharge Instructions: - Discharge Summary Sheet sp3 - Influenza, Adult sp3 Forms: - Medication Reconciliation Form sp3 - Antibiotic Education sp3 - Prescription Opioid Use sp3 - Patient Portal Instructions sp3 - Leadership Thank You Letter sp3 Prescriptions: - Tamiflu 75 mg Oral capsule - take 1 tablet ORAL route every 12 hours for 5 days; 10 tablet; Refills: 0, sp3 Product Selection Permitted Signatures: Dispatcher [employer] EDMS Joann Jane RN RN aa5 Steve Dumont MD MD sp3 Liss Perez RN RN kc6 Corrections: (The following items were deleted from the chart) 08: 08:25 Influenza Screen (A \T\ B)+BA.LAB.BRZ ordered. EDMS EDMS : 08:25 SARS-COV-2 Antigen Rapid+I.LAB.BRZ ordered. EDMS EDMS 08: 08:25 Group A Streptococcus Rapid Sc+BA.LAB.BRZ ordered. EDMS EDMS
--- NOTE | 2024-02-21 09:34 | ER ---
Nurse's Notes [facility] Name: Xiomara Huertas Age: 34 yrs Sex: Female : 1990 Arrival Date: 02/21/2024 Time: 07:59 Bed 18 Private MD: Diagnosis: Influenza A Presentation: 02/20 08:23 Chief complaint: Patient states: "my son got diagnosed with the flu and I started with aa5 symptoms on Saturday". Pt reports cough, congestion, sore throat, and body aches. 08:23 Acuity: ANTONIO 4 aa5 08:23 Method Of Arrival: Ambulatory aa5 08:23 Coronavirus screen: congestion, cough unrelated to allergies, muscle pain, sore throat. aa5 Ebola Screen: Patient denies travel to an Ebola-affected area in the 21 days before illness onset. Initial Sepsis Screen: Does the patient meet any 2 criteria? Temp <36.0*C (96.8*F)) or > 38.3*C (100.9*F). HR > 90 bpm. Yes Does the patient have a suspected source of infection?. Risk Assessment: Do you want to hurt yourself or someone else? Patient reports no desire to harm self or others. Onset of symptoms was February 2024. 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 - Infectious Disease History:: Denies. - Social history:: Smoking status: Patient denies any tobacco usage or history of. Screenin:04 [facility] ED Fall Risk Assessment (Adult) History of falling in the last 3 months, kc6 including since admission No falls in past 3 months (0 pts) Confusion or Disorientation No (0 pts) Intoxicated or Sedated No (0 pts) Impaired Gait No (0 pts) Mobility Assist Device Used No (0 pt) Altered Elimination No (0 pt) Score/Fall Risk Level 0 - 2 = Low Risk Oriented to surroundings, Maintained a safe environment. Abuse screen: Denies threats or abuse. Denies injuries from another. Nutritional screening: No deficits noted. Tuberculosis screening: No symptoms or risk factors identified. Assessment: 09:04 General: Appears in no apparent distress. uncomfortable, well groomed, well developed, kc6 Behavior is calm, cooperative, appropriate for age, Reports feeling ill for 2-3 days. Neuro: Level of Consciousness is awake, alert, obeys commands, Oriented to person, place, time, situation, Appropriate for age Reports headache. Cardiovascular: Capillary refill < 3 seconds. Respiratory: Reports cough that is productive, Airway is patent Trachea midline Respiratory effort is even, unlabored, Respiratory pattern is regular, symmetrical. GI: No signs and/or symptoms were reported involving the gastrointestinal system. : No signs and/or symptoms were reported regarding the genitourinary system. EENT: Throat is pink has enlarged tonsils bilaterally with gag reflex present, Reports nasal discharge pain when swallowing. Derm: No signs and/or symptoms reported regarding the dermatologic system. Skin is intact, is healthy with good turgor, Skin is pink, warm \\T\\ dry. Musculoskeletal: No signs and/or symptoms reported regarding the musculoskeletal system. Circulation, motion, and sensation intact. Capillary refill < 3 seconds, Range of motion: intact in all extremities. Vital Signs: 08:23 BP 130 / 80; Pulse 105; Resp 22 S; Temp 102.1(O); Pulse Ox 98% on R/A; Weight 79.38 kg aa5 (R); Height 4 ft. 11 in. (R); 09:04 BP 124 / 84; Pulse 95; Resp 18 S; Pulse Ox 96% on R/A; kc6 09:42 BP 116 / 52; Pulse 102; Resp 19 S; Temp 100.1(O); Pulse Ox 96% on R/A; kc6 08:23 Body Mass Index 35.35 (79.38 kg, 149.86 cm) aa5 ED Course: 08:02 Patient arrived in ED. [email or web address] 08:18 Steve Dumont MD is Attending Physician. sp3 08:23 Arm band placed on. aa5 08:26 Triage completed. aa5 08:32 Liss Perez, PEYTON is Primary Nurse. kc6 09:04 Patient has correct armband on for positive identification. Bed in low position. Call kc6 light in reach. Side rails up X 1. Pulse ox on. NIBP on. Door closed. Noise minimized. Lights dimmed. Pillow given. 09:04 Patient maintains SpO2 saturation greater than 95% on room air. kc6 Administered Medications: 08:42 Drug: Acetaminophen PO 1000 mg PO once Route: PO; kc6 09:42 Follow up: Response: No adverse reaction; Temperature is decreased kc6 Outcome: 09:34 Discharge ordered by MD. riojas 09:48 Patient left the ED. aa5 Signatures: Joann Jane RN RN aa5 Steve Dumont MD MD sp3 Jeanette Fleming6 Liss Perez RN RN kc6
[2024-02-21 10:53] VITALS: O2SAT 96
[2024-02-21 10:59] VITALS: BP 116/52; TEMP 100.1
== END 2024-02-21 09:48 | disposition home or self-care (01) ==
LOC: ER 07:59
DX: J10.1 Influenza due to other identified influenza virus with other respiratory manifestations (principal); Z11.52 Encounter for screening for COVID-19
CPT/HCPCS: 36415; 87070; 87081; 87804; 87811; 99283